=== PATIENT | female | born 1935 | race Caucasian/White ===

== ENCOUNTER 2019-03-04 14:39 | Emergency (ER) | payer OTHER, BC ==
--- OUTSIDE RECORDS SUMMARY | 2019-03-04 14:42 | XMS REPORT | Continuity of Care Document ---
:1935 Author Organization [facility] Care Team Providers Name Role Phone [facility] Unavailable Unavailable Problems Problem Status Onset Classification Date Comments Source Date Reported Alzheimer Active Problem 12/16/2018 [facility] Dementia Active Problem 12/16/2018 [facility] Hypertension Active Problem 12/16/2018 [facility] Insomnia Active Problem 12/16/2018 [facility] Memory loss Active Problem 12/16/2018 [facility] Alzheimer's Active Problem 02/17/2019 [facility] (disorder) Dementia Active Problem 02/17/2019 [facility] (disorder) [facility] Hypertensive Active Problem 02/17/2019 [facility] disorder, Neuro systemic arterial (disorder) Insomnia Active Problem 02/17/2019 [facility] (disorder) Neuro Memory Active Problem 02/17/2019 [facility] impairment [facility] (finding) Medications Medication Details Route Status Patient Ordering Order Source Instructions Provider Date Memantine 10 mg=1 Active [facility] hydrochloride 10 tab, PO, 019 [facility] MG Oral Tablet BID, # 60 [Namenda] tab, 3 Refill(s), Pharmacy: [id number] donepezil 10 mg 10 mg=1 Active [facility] oral tablet tab, PO, 019 [facility] Bedtime, # 30 tab, 3 Refill(s), Pharmacy: [facility][id number] QUEtiapine 25 mg 25 mg, PO, Active [facility] oral tablet PRN, PRN 019 Neuro Agitation, # 30 tab, 2 Refill(s), Pharmacy: [facility] #[id number] donepezil 10 mg 10 mg=1 Active [facility] oral tablet tab, PO, 019 Neuro Bedtime, # 30 tab, 3 Refill(s), Pharmacy: [facility] #[id number] Memantine 10 mg=1 Active [facility] hydrochloride 10 tab, PO, 019 Neuro MG Oral Tablet BID, # 60 [Namenda] tab, 3 Refill(s), Pharmacy: [facility] #[id number] metoprolol 50 mg=1 Active [facility] succinate 50 mg cap, PO, 019 Neuro oral capsule, Daily, 0 extended release Refill(s) Thyroxine 25 Active [facility] microgram, 019 Neuro PO, Daily, 0 Refill(s) rosuvastatin 10 mg, PO, Active [facility] Daily, 0 019 Neuro Refill(s) quetiapine 25 mg, PO, Active [facility] Bedtime, 0 019 Neuro Refill(s) loratadine 10 mg 10 mg=1 Active [facility] oral capsule cap, PO, 019 Neuro Daily, 0 Refill(s) donepezil 70 mg, PO, Inactive [facility] Daily, 0 019 Neuro Refill(s) Amlodipine 10 mg, PO, Active [facility] Daily, 0 019 Neuro Refill(s) Aspirin 81 mg, PO, Active [facility] Daily, 0 019 Neuro Refill(s) Allergies, Adverse Reactions, Alerts No Known Medication Allergies Immunizations No Data Provided for This Section Results No Data Provided for This Section Pathology Reports No Data Provided for This Section Diagnostic Reports No Data Provided for This Section Consultation Notes No Data Provided for This Section Discharge Summaries No Data Provided for This Section History and Physicals No Data Provided for This Section Vital Signs Vital Sign Value Date Comments Source Systolic (mm Hg) 131 02/14/2019 [facility] Diastolic (mm Hg) 83 02/14/2019 [facility] Heart Rate 50 02/14/2019 [facility] Respitory Rate 16 02/14/2019 [facility] Height 162.56 cm 02/14/2019 [facility] Weight 58.182 02/14/2019 [facility] BMI Calculated 22.02 02/14/2019 [facility] Height 152.4 cm 12/13/2018 [facility] Weight 58.182 12[place]13/2018 [facility] BMI Calculated 25.05 12/13/2018 [facility] Heart Rate 68 12/13/2018 [facility] Respitory Rate 16 12/13/2018 [facility] Systolic (mm Hg) 135 12/13/2018 [facility] Diastolic (mm Hg) 80 12/13/2018 [facility] BMI Calculated 22.53 11/10/2018 [facility] Weight 59.545 11/10/2018 [facility] Respitory Rate 16 11/10/2018 [facility] Height 162.56 cm 11/10/2018 [facility] Systolic (mm Hg) 120 11/10/2018 [facility] Diastolic (mm Hg) 77 11/10/2018 [facility] Encounters Location Location Encounter Encounter Reason Attending ADM DC Status Source Details Type Number For Provider Date Date Visit Outpatient [id number] Brock 11/08 Active [facility] Ambulatory [id number] Brock 11/08 11/08 [facility] [place] [facility] Outpatient [id number] Brock 11/08 11/09 [facility] [place] Outpatient [id number] Brock 11/10 [facility] [place] [facility] Outpatient [id number] Brock 11/10 11/11 [facility] [place] Outpatient [id number] Brock 12/13 [facility] [place] [facility] Outpatient [id number] Brock 12/13 12/14 [facility] [place] Outpatient [id number] Brock 02/14 [facility] [place] [facility] Outpatient [id number] Brock 02/14 02/15 [facility] [place] Outpatient [id number] Brock 05/16 [facility] [place] Procedures Procedure Code Date Perfomer Comments Source Bypass [id number] [facility] Assessment and Plan No Data Provided for This Section Plan of Care No Data Provided for This Section Social History Social History Date Source Social History TypeResponse 11/10/2018 [facility] Employment/School Status: Retired.1 Smoking Status Unknown if ever smoked; Exposure to Tobacco Smoke Unable to obtain; Cigarette Smoking Last 365 Days Unable to obtain; Reg Smoking Cessation Counseling No entered on: 02/14/19 1May release medical information to Daughter- Zenia Bailey and Tool Engine Lathe Set Up Operatoraisha valdez Family History No Data Provided for This Section Advance Directives No Data Provided for This Section Functional Status No Data Provided for This Section
--- OUTSIDE RECORDS SUMMARY | 2019-03-04 14:43 | XMS REPORT | Summary of Care ---
:1935 Author Organization [facility] Address [address] [place] [address]- Encounter HQ Tiannar_dorys(FIN) [id number] Date(s): 02/14/19 - 02/14/19 [facility] [address], [place] [address]- [phone] Discharge Disposition: Home or Self Care Attending Physician: Brock Yee MD Referring Physician: Brock Yee MD Vital Signs Most recent to oldest [Reference Range]: 1 Height 162.56 cm (02/14/19 9:14 AM) Blood Pressure [90-140/60-90 mmHg] 131/83 mmHg (02/14/19 9:14 AM) Respiratory Rate [14-20 BRMIN] 16 BRMIN (02/14/19 9:14 AM) Peripheral Pulse Rate [60-100 bpm] 50 bpm *LOW* (02/14/19 9:14 AM) Weight 58.182 kg (02/14/19 9:14 AM) Body Mass Index 22.02 m2 (02/14/19 9:14 AM) Problem List Condition Effective Dates Status Health Status Informant Alzheimer disease(Confirmed) Active Dementia(Confirmed) Active Hypertension(Confirmed) Active Insomnia(Confirmed) Active Memory loss(Confirmed) Active Allergies, Adverse Reactions, Alerts No Known Allergies Medications donepezil 10 mg oral tablet 10 mg=1 tab, PO, Bedtime, # 30 tab, 3 Refill(s), Pharmacy: [id number] Start Date: 02/14/19 Stop Date: 06/14/19 Status: OrderedNamenda 10 mg oral tablet 10 mg=1 tab, PO, BID, # 60 tab, 3 Refill(s), Pharmacy: [id number] Start Date: 02/14/19 Stop Date: 06/14/19 Status: Ordered Results No data available for this section Immunizations No data available for this section Procedures Procedure Date Related Diagnosis Body Site Status Bypass Completed Social History Social History Type Response Employment/School Status: Retired.1 Smoking Status Unknown if ever smoked; Exposure to Tobacco Smoke Unable to obtain; Cigarette Smoking Last 365 Days Unable to obtain; Reg Smoking Cessation Counseling No entered on: 02/14/19 1May release medical information to Daughter- Zenia Bailey & Inward Toll Operator- Gino valdez Assessment and Plan No data available for this section
--- OUTSIDE RECORDS SUMMARY | 2019-03-04 14:43 | XMS REPORT ---
:1935 [facility] Address [address] [place] [address] Care Team Providers Name Role Phone Unavailable Unavailable Unavailable Problems This patient has no known problems. Allergies, Adverse Reactions, Alerts This patient has no known allergies or adverse reactions. Medications This patient has no known medications. Results Test Description Test Time Test Comments Text Results Atomic Results Result Comments US Extremity 2018-09-03 Patient: FRANCOIS GRIJALVA Nonvascular 11:48:53 Limited Right Date/Time09/03/2018 11:00 CDTReason for ExamExtremity swellingReportEXAMINATION: Right lower extremity nonvascular soft tissue ultrasoundTECHNIQUE: Multiplanar grayscale and color sonography of the right proximal lower extremity lateral soft tissues was performed.INDICATION: Fall with posttraumatic right lower extremity proximal lateral soft tissue swelling/painCOMPARISON: Right hip x-rays performed the same date 09/03/2018.FINDINGS:A 5.1 x 1.3 x 3.8 cm (SAT) prominently cystic fluid collection with multiple internal heterogeneously echoic components, without internal vascularity nor surrounding hypervascularity. Mild overlying soft tissue swelling/thickening.IMPRESSION:Findings most likely represent a 5.1 cm right lower extremity proximal lateral soft tissue organized hematoma. Final Dictated by: MD Carlos, SamerDictated DT/TM: 09/03/2018 11:45 amSigned by: MD Carlos, SamerSigned (Electronic Signature): 09/03/2018 11:48 am US Lower Ext 2018-09-03 Patient: FRANCOIS GRIJALVA Venous Duplex 11:43:40 Right Date/Time09/03/2018 11:34 CDTReason for ExamExtremity painReportEXAM: Right Lower Extremity Duplex Venous Sonogram.TECHNIQUE: Greyscale imaging with and without Doppler interrogation including Doppler wave-form analysis and Doppler color-flow imaging.HISTORY: Fall with posttraumatic right lower extremity swelling and painCOMPARISON: NoneFINDINGS:Right lower extremity: The common femoral, superficial femoral, and popliteal veins demonstrated normal compressibility, and normal augmented and phasic Doppler data were obtained. Normal augmented Doppler data was obtained from the peroneal, posterior tibial, and anterior tibial veins.IMPRESSION: No evidence of DVT involving the right lower extremity. Final Dictated by: MD Carlos, SamerDictated DT/TM: 09/03/2018 11:42 amSigned by: MD Gonzalez SamerSigned (Electronic Signature): 09/03/2018 11:43 am XR Pelvis 1 or 2 2018-09-03 Patient: FRANCOIS GRIJALVA Views 09:41:46 Date/Time09/03/2018 09:26 CDTReason for ExamInjuryReportEXAMINATION:1. PELVIS: ONE AP VIEW2. RIGHT HIP 2 VIEWSCLINICAL INFORMATION: Fall with posttraumatic right hip pain.COMPARISON:FINDINGS: No acute fractures or dislocations. No osseous erosions or periosteal reaction. Mild degenerative osteophytosis of the bilateral hips. Sacroiliac joints are grossly unremarkable. Moderate calcific atherosclerosis of the bilateral pelvic/proximal lower extremity vasculature. No radiopaque foreign bodies. Mild soft tissue swelling/hematoma of the lateral aspect of the right proximal lower extremity soft tissues.IMPRESSION:1. No acute osseous abnormalities of the pelvis/right hip.2. Mild degenerative changes the bilateral acetabular joints.3. Mild proximal right lower extremity lateral soft tissue hematoma. Final Dictated by: MD Carlos, SamerDictated DT/TM: 09/03/2018 9:38 amSigned by: MD Gonzalez SamerSigned (Electronic Signature): 09/03/2018 9:41 am XR Hip Complete 2+ 2018-09-03 Patient: FRANCOIS GRIJALVA Views Right 09:41:46 Date/Time09/03/2018 09:26 CDTReason for ExamFallReportEXAMINATION:1. PELVIS: ONE AP VIEW2. RIGHT HIP 2 VIEWSCLINICAL INFORMATION: Fall with posttraumatic right hip pain.COMPARISON:FINDINGS: No acute fractures or dislocations. No osseous erosions or periosteal reaction. Mild degenerative osteophytosis of the bilateral hips. Sacroiliac joints are grossly unremarkable. Moderate calcific atherosclerosis of the bilateral pelvic/proximal lower extremity vasculature. No radiopaque foreign bodies. Mild soft tissue swelling/hematoma of the lateral aspect of the right proximal lower extremity soft tissues.IMPRESSION:1. No acute osseous abnormalities of the pelvis/right hip.2. Mild degenerative changes the bilateral acetabular joints.3. Mild proximal right lower extremity lateral soft tissue hematoma. Final Dictated by: MD Carlos, SamerDictated DT/TM: 09/03/2018 9:38 amSigned by: MD Carlos, Sue (Electronic Signature): 09/03/2018 9:41 am XR Chest 1 View 2018-09-03 Patient: FRANCOIS GRIJALVA Frontal 09:38:43 Date/Time09/03/2018 09:26 CDTReason for ExamShortness of breathReportEXAM: Chest, 1 View at 0909.TECHNIQUE: AP semiupright view.COMPARISON: None available at time of dictationHISTORY: Shortness of breathFINDINGS:Cardiac silhouette is within normal limits. Moderately tortuous thoracic aorta. No infiltrate or pleural effusion is seen. Median sternotomy wires are in place. Osseous structures are otherwise grossly intact.IMPRESSION:No acute intrathoracic abnormalities. Final Dictated by: MD Carlos, SamerDictated DT/TM: 09/03/2018 9:35 amSigned by: MD Carlos, Sue (Electronic Signature): 09/03/2018 9:[address] THORAX W/CONT 2017-04-01 [id number] 15:28:00 [place], [place] [address]LNILTVWPNN IMAGING REPORTPatient Name: FRANCOIS GRIJALVA ADate of Service: [id number]: [id number] Sex: F Order #: [id number] Room: OPEDOB: 1935 X-Ray Number: [id number] Record Number: [id number] Hospital Number: [id number] Physician: AARON, PCPOrdering Physician: ANNIE TORRE chest with contrast 3:00 PMHistory: Thoracic aneurysm, CABG.This CT exam was performed using one or more of the following dosereduction techniques: Automated exposure control, adjustment of the MAand/or KV according to patient size or use of iterative reconstructiontechnique.Findings:There has been CABG.There is a thoracic aortic aneurysm. The ascending thoracic aorta measuresapproximately 5.1 x 3.9 cm. The aortic arch demonstrates atheroscleroticchange and measures approximately 4.1 x 4.0 cm. The proximal descendingthoracic aorta measures 3.1 x 2.8 cm and is tortuous. The distal descendingthoracic aorta measures 4.3 x 5.7 cm near the thoracoabdominal junction.There is a moderate-sized hiatal hernia present.There has been cholecystectomy.Large left renal cyst measures roughly 7 cm.The lungs demonstrate no focal consolidation.There is no pleural effusion or pneumothorax present.There are degenerative changes of the spine.Impression:Thoracic aortic aneurysm as discussed above.Hiatal hernia.Electronically Signed By: Chan Gutierrez M.D., 04/01/2017 3:25 PMLcamillallmartha authenticated by MATT SANTIAGO 2017-04-01 15:25:50
--- NOTE | 2019-03-04 16:05 | RAD REPORT ---
EXAM DESCRIPTION: CT - Stone Protocol - 03/04/2019 3:45 pm CLINICAL HISTORY: Abdominal pain, back pain, decreased urine output COMPARISON: None. TECHNIQUE: Axial 5 mm thick images were obtained without oral or IV contrast. The [id number] span s the entirety of the system partially obscuring uppermost abdomen and lung bases. All CT scans are performed using dose optimization technique as appropriate and may include automated exposure control or mA/KV adjustment according to patient size. FINDINGS: No hydronephrosis is present and no obstructing ureteral calculi. No suspicious renal mass es. Isodense masses and pyelonephritis are not excluded on a stone protocol CT scan. Patient has mult iple phleboliths along the pelvic floor. There is a large 8.5 centimeter cyst in the lateral and infe rior aspect of the left kidney. No significant adrenal finding. Bladder is only partially filled. No bladder calculus seen. Bladder wall thickening is present. Atrop hic ovarian tissue is identified. There is a soft tissue density posterior the bladder that may be at rophic uterus. Hysterectomy status of the patient is uncertain. Margins of this structure are not wel l defined. There is an excessive soft tissue along the pelvic floor extending to the vaginal vault an d labia. Patient has significant pelvic floor laxity. There is prominent soft tissue near the anus. Imaged portions of the liver, spleen and pancreas show no suspicious findings on non-contrast imaging . Cholecystectomy clips are present. No biliary tree dilatation. Moderate-size hiatal hernia is present. Approximately 30% of the stomach is intrathoracic. No dilatio n of the small bowel. There is minimal sigmoid diverticulosis. From cecum to distal rectum there is n o suspicious finding. Prominent soft tissues are present at the anus. No abnormal lymphadenopathy. No ascites or omental thickening. Midline surgical changes are evident. A small supraumbilical hernia is present containing only fat. No free air or pneumatosis. No acute bone findings seen. There is concavity of the superior endplate L1 with overall body height preserved. Patient has a 4.8 centimeter diameter hernia in the distal most thoracic aorta. Aorta is quite tortuo us. A second area of aneurysmal dilatation reaching 3.8 cm noted at the level of the renal vasculatur e. Aorta is 3.4 cm between the renal vasculature in the aortic bifurcation. Dense calcifications are present. No centrally displaced calcifications. Very dense calcifications of the mesenteric arterial tree seen. Dense common iliac artery calcifications are present with probable stenoses. Vascular asse ssment is limited in the absence of contrast. IMPRESSION: No bowel obstruction, free air or emergent finding. Contracted bladder showing wall thickening. Cystitis is possible. There is no hydronephrosis or obstr ucting calculus. Isodense masses and pyelonephritis are not excluded on stone protocol study. Hysterectomy status is not known. There is an excess of soft tissue along the pelvic floor that may i nvolve the vaginal vault and labia. Prominent soft tissues at the anus. This is all in the presence o f significant pelvic floor laxity. Pelvic floor findings are concerning for malignancy. Further history may be helpful. Dedicated MEAT AND POULTRY INSPECTOR ex amination will likely be needed. Distal thoracic aortic aneurysm reaching 4.8 cm. 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 Additional less significant findings detailed in the body of the report.
[2019-03-04 16:28] LABS: Absolute Lymphocytes (CBC) 1.8 K/uL (0.7-4.9); Basophils % 0.4 % (0-1.3); Hematocrit 36.8 % (36.0-45.0); Lymphocytes % 17.4 % (15.3-44.8); MPV 9.6 fL (7.6-11.3); RBC Red Blood Cell Count 4.14 M/uL (3.86-4.86)
[2019-03-04 16:48] LABS: Albumin 3.8 g/dL (3.4-5.0); Bilirubin Direct 0.2 mg/dL (0-0.2); Bilirubin Total 0.8 mg/dL (0.2-1.0)
[2019-03-04 17:23] LABS: Urine Bacteria >50 /HPF (<20); Urine Culture Reflex Order REFLEXED; Urine Mucus SLIGHT /HPF (NONE SEEN)
[2019-03-04 18:00] LABS: Urine Blood 2+ (NEG); Urine Glucose NEGATIVE (NEG); Urine Protein 2+ (NEG)
[2019-03-04] MEDS ORDERED: CIPROFLOXACIN HCL 500 MG TAB ONE (18:12)
[2019-03-04] MEDS ORDERED: CODEINE 30MG/APAP 300MG TAB ONE (18:13)
[2019-03-04] MEDS ORDERED: NA CHLORIDE 0.9% 1,000 ML ONE (18:13)
--- NOTE | 2019-03-04 19:38 | EDPHYS ---
Physician Documentation [facility] Name: Nilda Gracia Age: 84 yrs Sex: Female : 1935 Arrival Date: 03/04/2019 Time: 14:44 Bed 16 Private MD: ED Physician Verona Diaz HPI: 03/04 16:32 This 84 yrs old Female presents to ER via Ambulatory with complaints of Back pm1 Pain. 16:32 The patient presents with pain that is acute. The symptoms are located in the right low pm1 back. Onset: The symptoms/episode began/occurred yesterday. The pain does not radiate. Associated signs and symptoms: Pertinent positives: dysuria, Pertinent negatives: abdominal pain, chest pain, fever, headache, numbness, tingling. Severity of symptoms: in the emergency department the symptoms are unchanged. The patient has not recently seen a physician. Historical: - Allergies: 14:48 PENICILLINS; la1 - PMHx: 14:48 Dementia; la1 - Immunization history:: Adult Immunizations up to date. - Social history:: Smoking status: Patient/guardian denies using tobacco. - Ebola Screening: : No symptoms or risks identified at this time. ROS: 16:32 Constitutional: Negative for fever, chills, and weight loss, Eyes: Negative for injury, pm1 pain, redness, and discharge, ENT: Negative for injury, pain, and discharge, Neck: Negative for injury, pain, and swelling, Cardiovascular: Negative for chest pain, palpitations, and edema, Respiratory: Negative for shortness of breath, cough, wheezing, and pleuritic chest pain, Abdomen/GI: Negative for abdominal pain, nausea, vomiting, diarrhea, and constipation. 16:32 MS/Extremity: Negative for injury and deformity, Skin: Negative for injury, rash, and discoloration, Neuro: Negative for headache, weakness, numbness, tingling, and seizure. 16:32 Back: Positive for of the right low back, pain. 16:32 : Positive for burning with urination. Exam: 16:32 Constitutional: This is a well developed, well nourished patient who is awake, alert, pm1 and in no acute distress. Head/Face: Normocephalic, atraumatic. Eyes: Pupils equal round and reactive to light, extra-ocular motions intact. Lids and lashes normal. Conjunctiva and sclera are non-icteric and not injected. Cornea within normal limits. Periorbital areas with no swelling, redness, or edema. ENT: Nares patent. No nasal discharge, no septal abnormalities noted. Tympanic membranes are normal and external auditory canals are clear. Oropharynx with no redness, swelling, or masses, exudates, or evidence of obstruction, uvula midline. Mucous membranes moist. Neck: Trachea midline, no thyromegaly or masses palpated, and no cervical lymphadenopathy. Supple, full range of motion without nuchal rigidity, or vertebral point tenderness. No Meningismus. Chest/axilla: Normal chest wall appearance and motion. Nontender with no deformity. No lesions are appreciated. Cardiovascular: Regular rate and rhythm with a normal S1 and S2. No gallops, murmurs, or rubs. Normal PMI, no JVD. No pulse deficits. Respiratory: Lungs have equal breath sounds bilaterally, clear to auscultation and percussion. No rales, rhonchi or wheezes noted. No increased work of breathing, no retractions or nasal flaring. Abdomen/GI: Soft, non-tender, with normal bowel sounds. No distension or tympany. No guarding or rebound. No evidence of tenderness throughout. 16:32 Skin: Warm, dry with normal turgor. Normal color with no rashes, no lesions, and no evidence of cellulitis. MS/ Extremity: Pulses equal, no cyanosis. Neurovascular intact. Full, normal range of motion. 16:32 Back: CVA tenderness, that is mild, is noted on the right, vertebral tenderness, is not appreciated. 16:32 Neuro: Orientation: is normal, Motor: is normal, moves all fours. Vital Signs: 14:48 BP 137 / 77; Pulse 62; Resp 16; Temp 98.1; Pulse Ox 98% on R/A; la1 15:42 BP 149 / 78; Pulse 57; Resp 16; Pulse Ox 97% on R/A; rb1 16:42 BP 144 / 81; Pulse 60; Resp 15; Pulse Ox 98% on R/A; rb1 17:42 BP 144 / 70; Pulse 56; Resp 17; Pulse Ox 96% on R/A; Pain 7/10; rb1 18:40 BP 150 / 77; Pulse 57; Resp 18; Pulse Ox 96% on R/A; rb1 19:15 BP 149 / 73; Pulse 61; Resp 16; Pulse Ox 96% on R/A; jb4 20:15 BP 143 / 72; Pulse 61; Resp 16; Pulse Ox 96% on R/A; jb4 MDM: 15:08 Patient medically screened. pm1 19:04 Data reviewed: vital signs. Data interpreted: Pulse oximetry: on room air is 96 %. pm1 Interpretation: normal. Counseling: I had a detailed discussion with the patient and/or guardian regarding: the historical points, exam findings, and any diagnostic results supporting the discharge/admit diagnosis, lab results, radiology results, the need for outpatient follow up, to return to the emergency department if symptoms worsen or persist or if there are any questions or concerns that arise at home. 03/04 15:10 Order name: Basic Metabolic Panel; Complete Time: 17:02 pm1 03/04 15:10 Order name: CBC with Diff; Complete Time: 16:31 pm1 03/04 15:10 Order name: Creatinine for Radiology; Complete Time: 17:02 pm1 03/04 15:10 Order name: Hepatic Function; Complete Time: 17:02 pm1 03/04 15:10 Order name: Lipase; Complete Time: 17:02 pm1 03/04 16:31 Order name: Urine Microscopic Only; Complete Time: 17:45 pm1 03/04 15:10 Order name: Urine Dipstick-Ancillary (obtain specimen); Complete Time: 16:22 pm1 03/04 15:10 Order name: CT Stone Protocol; Complete Time: 16:28 pm1 03/04 15:10 Order name: IV Saline Lock; Complete Time: 17:16 pm1 03/04 17:21 Order name: Urine Dipstick--Ancillary (enter results); Complete Time: 18:52 ms 03/04 17:28 Order name: Urine Culture EDMS 03/04 15:10 Order name: Labs collected and sent; Complete Time: 17:16 pm1 Administered Medications: 18:05 Drug: NS 0.9% 1000 ml Route: IV; Rate: 1000 ml; Site: left antecubital; rb1 20:38 Follow up: Response: No adverse reaction; IV Status: Completed infusion jb4 18:16 Drug: Cipro 500 mg Route: PO; rb1 18:44 Follow up: Response: No adverse reaction; Pain is decreased rb1 18:16 Drug: Tylenol #3 (300 mg-30 mg) 1 tablet {Note: RASS score 0.} Route: PO; rb1 18:44 Follow up: Response: No adverse reaction; Pain is decreased rb1 Disposition: 03/04/19 19:05 Discharged to Home. Impression: Urinary tract infection, site not specified. - Condition is Stable. - Discharge Instructions: Urinary Tract Infection, Adult. - Prescriptions for Cipro 500 mg Oral Tablet - take 1 tablet by ORAL route every 12 hours for 7 days; 14 tablet. Tylenol- Codeine #3 300-30 mg Oral Tablet - take 1 tablet by ORAL route every 8 hours As needed; 12 tablet. - Medication Reconciliation Form, Thank You Letter, Antibiotic Education, Prescription Opioid Use form. - Follow up: Emergency Department; When: As needed; Reason: Worsening of condition. Follow up: Private Physician; When: 2 - 3 days; Reason: Recheck today's complaints, Continuance of care, Re-evaluation by your physician. - Problem is new. - Symptoms have improved. Signatures: Dispatcher [employer] EDMS Adalberto Simms RN RN la1 Aleida Garcia RN RN rb1 Thiago Cornejo NP [employer]TRONICS TECHNICIAN pm1 Alexx Putnam RN RN jb4 Verona Diaz MD MD ma2 Corrections: (The following items were deleted from the chart) 20:38 19:05 03/04/2019 19:05 Discharged to Home. Impression: Urinary tract infection, site jb4 not specified. Condition is Stable. Forms are Medication Reconciliation Form, Thank You Letter, Antibiotic Education, Prescription Opioid Use. Follow up: Emergency Department; When: As needed; Reason: Worsening of condition. Follow up: Private Physician; When: 2 - 3 days; Reason: Recheck today's complaints, Continuance of care, Re-evaluation by your physician. Problem is new. Symptoms have improved. pm1
--- NOTE | 2019-03-04 19:38 | ER ---
Nurse's Notes [facility] Name: Nilda Gracia Age: 84 yrs Sex: Female : 1935 Arrival Date: 03/04/2019 Time: 14:44 Bed 16 Private MD: Diagnosis: Urinary tract infection, site not specified Presentation: 03/04 14:49 Presenting complaint: Child states: She started having lower back pain yesterday. She la1 seems to be more lethargic than normal. Transition of care: patient was not received from another setting of care. Onset of symptoms was March 04, 2019. Risk Assessment: Do you want to hurt yourself or someone else? Patient reports no desire to harm self or others. Initial Sepsis Screen: Does the patient meet any 2 criteria? No. Patient's initial sepsis screen is negative. Does the patient have a suspected source of infection? No. Patient's initial sepsis screen is negative. Care prior to arrival: None. 14:49 Method Of Arrival: Ambulatory la1 14:49 Acuity: GIANFRANCO 3 la1 Historical: - Allergies: 14:48 PENICILLINS; la1 - PMHx: 14:48 Dementia; la1 - Immunization history:: Adult Immunizations up to date. - Social history:: Smoking status: Patient/guardian denies using tobacco. - Ebola Screening: : No symptoms or risks identified at this time. Screenin:55 Abuse screen: Denies threats or abuse. Nutritional screening: No deficits noted. rb1 Tuberculosis screening: No symptoms or risk factors identified. Fall Risk No fall in past 12 months (0 pts). Secondary diagnosis (15 points) dementia, No IV (0 pts). Ambulatory Aid- Crutches/Cane/Walker (15 pts). Gait- Impaired (20 pts.). Mental Status- Overestimates/Forgets Limitations (15 pts.). Total Jung Fall Scale indicates High Risk Score (45 or more points). Fall prevention measures have been instituted. Side Rails Up X 2 Placed Close to Nursing Station 1:1 Attendant Assigned Frequent Obs/Assessments Occuring Family Present and informed to notify staff if the need to leave the bedside As available patient and family educated on Fall Prevention Program and Strategies. Assessment: 14:55 General: Appears uncomfortable, Behavior is calm, cooperative. Pain: Complains of pain rb1 in right lower back Pain does not radiate. pain is constant Pain currently is 7 out of 10 on a pain scale. Neuro: Level of Consciousness is awake, alert, obeys commands, Oriented to person, place, time, situation. Cardiovascular: Capillary refill < 3 seconds is brisk in bilateral. Respiratory: Airway is patent Respiratory effort is even, unlabored, Respiratory pattern is regular, symmetrical. GI: No signs and/or symptoms were reported involving the gastrointestinal system. : No signs and/or symptoms were reported regarding the genitourinary system. Derm: Skin is pink, warm \T\ dry. Musculoskeletal: Range of motion: intact in all extremities. 15:50 Reassessment: Patient appears in no apparent distress at this time. No changes from rb1 previously documented assessment. 16:50 Reassessment: Patient appears in no apparent distress at this time. Patient and/or rb1 family updated on plan of care and expected duration. Pain level reassessed. Patient is alert, oriented x 3, equal unlabored respirations, skin warm/dry/pink. 17:44 Reassessment: Patient appears in no apparent distress at this time. No changes from rb1 previously documented assessment. Family at bedside. 19:16 Reassessment: Patient appears in no apparent distress at this time. Patient and/or jb4 family updated on plan of care and expected duration. Pain level reassessed. PT is oriented to place, and self, and situation. Respirations are even and unlabored and symmetrical. No s/s of distress or pain noted. D/c pending completion of IV fluids. 20:35 Reassessment: Patient appears in no apparent distress at this time. No changes from jb4 previously documented assessment. Patient and/or family updated on plan of care and expected duration. Pain level reassessed. PT's family verbalized understanding of d/c and follow up instructions. Pt assisted to vehicle via wheelchair. Vital Signs: 14:48 BP 137 / 77; Pulse 62; Resp 16; Temp 98.1; Pulse Ox 98% on R/A; la1 15:42 BP 149 / 78; Pulse 57; Resp 16; Pulse Ox 97% on R/A; rb1 16:42 BP 144 / 81; Pulse 60; Resp 15; Pulse Ox 98% on R/A; rb1 17:42 BP 144 / 70; Pulse 56; Resp 17; Pulse Ox 96% on R/A; Pain 7/10; rb1 18:40 BP 150 / 77; Pulse 57; Resp 18; Pulse Ox 96% on R/A; rb1 19:15 BP 149 / 73; Pulse 61; Resp 16; Pulse Ox 96% on R/A; jb4 20:15 BP 143 / 72; Pulse 61; Resp 16; Pulse Ox 96% on R/A; jb4 ED Course: 14:44 Patient arrived in ED. mr 14:48 Arm band placed on left wrist. la1 14:49 Triage completed. la1 14:55 Patient has correct armband on for positive identification. Placed in gown. Bed in low rb1 position. Call light in reach. Side rails up X 1. Pulse ox on. NIBP on. Warm blanket given. 14:57 Thiago Cornejo NP is PHCP. pm1 14:57 Verona Diaz MD is Attending Physician. pm1 14:58 Aleida Garcia, RN is Primary Nurse. rb1 15:44 CT completed. Patient tolerated procedure well. Patient moved back from CT. mw3 15:45 CT Stone Protocol In Process Unspecified. EDMS 16:15 Inserted saline lock: 22 gauge in left antecubital area, using aseptic technique. rb1 ,using aseptic technique. IV inserted by RAHEEM Glover Blood collected. 19:23 Primary Nurse role handed off by Aleida Garcia, RAHEEM jb4 19:23 Alexx Putnam, RN is Primary Nurse. jb4 20:15 No provider procedures requiring assistance completed. IV discontinued, intact, jb4 bleeding controlled, No redness/swelling at site. Pressure dressing applied. Administered Medications: 18:05 Drug: NS 0.9% 1000 ml Route: IV; Rate: 1000 ml; Site: left antecubital; rb1 20:38 Follow up: Response: No adverse reaction; IV Status: Completed infusion jb4 18:16 Drug: Cipro 500 mg Route: PO; rb1 18:44 Follow up: Response: No adverse reaction; Pain is decreased rb1 18:16 Drug: Tylenol #3 (300 mg-30 mg) 1 tablet {Note: RASS score 0.} Route: PO; rb1 18:44 Follow up: Response: No adverse reaction; Pain is decreased rb1 Outcome: 19:05 Discharge ordered by . pm1 20:15 Discharged to home via wheelchair, with family. jb4 20:15 Condition: stable 20:15 Discharge instructions given to family, Instructed on discharge instructions, follow up and referral plans. medication usage, Demonstrated understanding of instructions, follow-up care, medications, Prescriptions given X 2. 20:38 Patient left the ED. jb4 Signatures: Dispatcher [employer] Alison WallaceAdalberto, RN RN la1 Aleida Garcia RN RN rb1 Thiago Cornejo, PLUMBER MAINTENANCE PLUMBER MAINTENANCE pm1 Alexx Putnam RN RN jb4 Sharonda Caba mw3 Corrections: (The following items were deleted from the chart) 16:51 14:55 Fall Risk None identified. rb1 rb1 19:24 19:16 Reassessment: Patient appears in no apparent distress at this time. Patient jb4 and/or family updated on plan of care and expected duration. Pain level reassessed. PT is oriented to place, and self, and situation. Respirations are even and unlabored and symmetrical. No s/s of distress or pain noted. jb4
[2019-03-04 21:21] VITALS: TEMP 98.1
[2019-03-04 21:25] VITALS: O2SAT 96
[2019-03-04 21:28] VITALS: BP 143/72
== END 2019-03-04 20:38 | disposition home or self-care (01) ==
LOC: ER 14:39
DX: N39.0 Urinary tract infection, site not specified (principal); F03.90 Unspecified dementia, unspecified severity, without behavioral disturbance, psychotic disturbance, mood disturbance, and anxiety; Z88.0 Allergy status to penicillin
CPT/HCPCS: 87088; 85025; 87086; 80048; 36415; 80076; 83690; 76377; 74176; J7030; 81003; 81015; 87077; 87186; 96360; 96361; 99284

== ENCOUNTER 2020-01-28 14:31 | Inpatient (IN) | payer OTHER, BC ==
--- OUTSIDE RECORDS SUMMARY | 2020-01-28 14:51 | XMS REPORT | Continuity of Care Document ---
:1935 Author Organization [facility] t Address [address] [place] [address] Care Team Providers Name Role Phone Lex Yee Attending Clinician Problems Condition Condition Condition Status Onset Resolution Last Treating Co mments Source Name Details Category Date Date Treatment Clinician Date Alzheimer' Problem Active 2019-11-17 M emoria s disease 21:17:16 l (disorder) Anderson n Alzheimer' s disease (disorder) Active Problem 11/17/2019 [facility] Dementia Problem Active 2019-11-17 Mem oria (disorder) 21:17:16 l Dementia Anderson n (disorder) Active Problem 11/17/2019 [facility] Hypertensi Problem Active 2019-11-17 M emoria ve 21:17:16 l disorder, [place] systemic Hypertensi arterial ve (disorder) disorder, systemic arterial (disorder) Active Problem 11/17/2019 [facility] Insomnia Problem Active 2019-11-17 Mem oria (disorder) 21:17:16 l Insomnia Anderson n (disorder) Active Problem 11/17/2019 [facility] Memory Problem Active 2019-11-17 Memor ia impairment 21:17:16 l (finding) Memory Sherly nn impairment (finding) Active Problem 11/17/2019 [facility] Allergies, Adverse Reactions, Alerts This patient has no known allergies or adverse reactions. Social History Social Habit Start Date Stop Date Quantity Comments Source Social History 2018-11-10 2018-11-10 Reese smalls 23:57:29 23:57:29 Medications Ordered Filled Start Stop Current Ordering Indication Dosage Frequency Signature Comments Components Source Medication Medication Date Date Medication? Clinician (SIG) Name Name 24 HR 2019- Yes 500 mg = 1 Celina a Divalproex 2-26 tab, PO, l Sodium 500 21:36: Bedtime, # Tad ermann MG Extended 01 90 tab, 3 Release Refill(s), Tablet Pharmacy: [Depakote] [facility] #[id number] 24 HR 2018-06 No 500 mg = 1 Memori a Divalproex 2-26 tab, PO, l Sodium 500 21:34: Bedtime, X H ermann MG Extended 16 90 day, # Release 90 tab, 3 Tablet Refill(s), [Depakote] Pharmacy: [facility] #[id number] Memantine 2018-06 Yes 10 mg = 1 Mem oria hydrochlori 2-04 tab, PO, l de 10 MG 16:04: BID, # 60 Herm rosi Oral Tablet 24 tab, 3 [Namenda] Refill(s), Pharmacy: [facility] cy #[id number] QUEtiapine 2018-06 Yes 25 mg, PO, M emoria 25 mg oral 2-04 PRN, PRN l tablet 16:04: Agitation, Sherly nn 10 # 30 tab, 2 Refill(s), Pharmacy: [facility] #[id number] donepezil 2018-06 Yes 10 mg = 1 Mem oria 10 mg oral 2-04 tab, PO, l tablet 16:01: Bedtime, # Sherly nn 28 30 tab, 3 Refill(s), Pharmacy: [facility] #[id number] 24 HR 2018-06 Yes 500 mg = 1 Memori a Divalproex 0-28 tab, PO, l Sodium 500 21:03: Bedtime, # H ermann MG Extended 00 30 tab, 3 Release Refill(s), Tablet Pharmacy: [Depakote] [facility] #[id number] Memantine 2019- Yes 10 mg = 1 Mem oria hydrochlori 9-04 tab, PO, l de 10 MG 14:30: BID, # 60 Herm rosi Oral Tablet 00 tab, 3 [Namenda] Refill(s), Pharmacy: [facility] #[id number] donepezil 2019- Yes 10 mg = 1 Mem oria 10 mg oral 9-04 tab, PO, l tablet 14:29: Bedtime, # Sherly nn 56 30 tab, 3 Refill(s), Pharmacy: [facility] #[id number] QUEtiapine 2018- Yes 25 mg, PO, M emoria 25 mg oral 7-03 PRN, PRN l tablet 14:35: Agitation, Sherly nn 00 # 30 tab, 2 Refill(s), Pharmacy: [facility] #[id number] donepezil 2019-0 Yes 10 mg = 1 Mem oria 10 mg oral 5-31 tab, PO, l tablet 15:03: Bedtime, # Sherly nn 00 30 tab, 3 Refill(s), Pharmacy: [facility] #[id number] Memantine 2019-0 Yes 10 mg = 1 Mem oria hydrochlori 5-31 tab, PO, l de 10 MG 15:03: BID, # 60 Herm rosi Oral Tablet 00 tab, 3 [Namenda] Refill(s), Pharmacy: [facility] #[id number] metoprolol 2019-0 Yes 50 mg = 1 Me moria succinate 5-31 cap, PO, l 50 mg oral 13:52: Daily, 0 Her fuentes capsule, 00 Refill(s) extended release Thyroxine 2019-0 Yes 25 Memoria 5-31 microgram, l 13:52: PO, Daily, [place] 0 Refill(s) rosuvastati 2019-0 Yes 10 mg, PO, Memoria n 5-31 Daily, 0 l 13:52: Refill(s) quetiapine 2019-0 Yes 25 mg, PO, M emoria 5-31 Bedtime, 0 l 13:52: Refill(s) loratadine 2019-0 Yes 10 mg = 1 Me moria 10 mg oral 5-31 cap, PO, l capsule 13:52: Daily, 0 Anderson n 00 Refill(s) donepezil 2019-0 No 70 mg, PO, Me moria 5-31 Daily, 0 l 13:52: Refill(s) Amlodipine 2019-0 Yes 10 mg, PO, M emoria 5-31 Daily, 0 l 13:52: Refill(s) Aspirin 2019-0 Yes 81 mg, PO, Praful juana 5-31 Daily, 0 l 13:52: Refill(s) Vital Signs Vital Name Observation Time Observation Value Comments Source Systolic (mm Hg) 2019-08-15 15:32:00 Pra[facility] rial [place] Diastolic (mm Hg) 2019-08-15 15:32:00 [facility] orial [place] Heart Rate 2019-08-15 15:32:00 [facility] [place] Respitory Rate 2019-08-15 15:32:00 Memori al [place] Height 2019-08-15 15:32:00 157.48 cm [facility] [place] Weight 2019-08-15 15:32:00 [facility] [place] BMI Calculated 2019-08-15 15:32:00 Mem[facility] [place] Systolic (mm Hg) 2019-05-16 15:10:00 Pra[facility] rial [place] Diastolic (mm Hg) 2019-05-16 15:10:00 Mem orial [place] Heart Rate 2019-05-16 15:10:00 [facility] [place] Respitory Rate 2019-05-16 15:10:00 [facility] [place] Height 2019-05-16 15:10:00 162.56 cm [facility] [place] Weight 2019-05-16 15:10:00 [facility] [place] BMI Calculated 2019-05-16 15:10:00 [facility] [place] Systolic (mm Hg) 2019-02-14 14:14:00 [facility] [place] Diastolic (mm Hg) 2019-02-14 14:14:00 Mem [facility] [place] Heart Rate 2019-02-14 14:14:00 [facility] [place] Respitory Rate 2019-02-14 14:14:00 [facility] [place] Height 2019-02-14 14:14:00 162.56 cm [facility] [place] Weight 2019-02-14 14:14:00 [facility] [place] BMI Calculated 2019-02-14 14:14:00 [facility] [place] Height 2018-12-13 14:22:00 152.4 cm [facility] [place] Weight 2018-12-13 14:22:00 [facility] [place] BMI Calculated 2018-12-13 14:22:00 [facility] [place] Heart Rate 2018-12-13 14:22:00 [facility] [place] Respitory Rate 2018-12-13 14:22:00 [facility] [place] Systolic (mm Hg) 2018-12-13 14:22:00 [facility] [place] Diastolic (mm Hg) 2018-12-13 14:22:00 Mem [facility] [place] BMI Calculated 2018-11-10 13:50:00 [facility] [place] Weight 2018-11-10 13:50:00 [facility] [place] Respitory Rate 2018-11-10 13:50:00 Mem[facility] al [place] Height 2018-11-10 13:50:00 162.56 cm [facility] [place] Systolic (mm Hg) 2018-11-10 13:50:00 Pra[facility] rial [place] Diastolic (mm Hg) 2018-11-10 13:50:00 Mem orial [place] Procedures Procedure Date / Time Performed Performing Clinician Dorina de jesus Bypass [facility] [place] Encounters Start End Encounter Admission Attending Care Care Encounter Source Date/Time Date/Time Type Type Clinicians Facility Department ID 2019-11-15 2019-11-15 Outpatient MARINA YeeSCHER MHMISCHER [id number] 09:45:00 09:45:00 [facility] 08 Lex 2019-08-15 2019-08-15 Outpatient MARINA YeeSCHER MHMISCHER [id number] 09:45:00 23:59:59 [facility] Lex 2019-05-16 2019-05-16 Outpatient MARINA YeeSCHILANA MARINELLIMISCHER [id number] 09:45:00 23:59:59 [facility] 06 Lex 2019-02-14 2019-02-14 Outpatient MARINA YeeSCHER MHMISCHER [id number] 09:15:00 23:59:59 [facility] 05 Lex 2018-12-13 2018-12-13 Outpatient ISIS YeeMISCHER MHMISCHER [id number] 09:00:00 23:59:59 Brock [facility] 2018-11-10 2018-11-10 Outpatient MARINA YeeSCHER ISISMISCHER [id number] 09:15:00 23:59:59 [facility] 03 [facility] 2018-11-08 2018-11-08 Outpatient MARINA YeeSCHER MHMISCHER [id number] 16:00:00 23:59:59 Brock [facility] 2018-11-08 2018-11-08 Outpatient ISIS YeeMARQUISSCHER MHMISCHER [id number] 14:00:00 14:00:00 [facility] 01 Lex Results Test Description Test Time Test Comments Results Result Dorina de jesus Comments US Extremity 2018-08-12 Patient: VALENTINE, Nonvascular 4 FRANCOIS A Limited Right 11:48:53 Date/Time09/03/2018 11:00 CDTReason for ExamExtremity swellingReportEXAMINATION: Right [...] nor surrounding hypervascularity. Mild overlying soft tissue swelling/thickening.IMPRES ANAT:Findings most likely represent a 5.1 cm right lower extremity proximal lateral soft tissue organized hematoma. Final Dictated by: MD Carlos, SamerDictated DT/TM: 09/03/2018 11:45 amSigned by: MD Carlos, Tomigned (Electronic Signature): 09/03/2018 11:48 am US Lower Ext 2018-08-12 Patient: VALENTINE Venous Duplex 4 FRANCOIS A Right 11:43:40 Date/Time09/03/2018 11:34 CDTReason for ExamExtremity painReportEXAM: Right [...] SamerDictated DT/TM: 09/03/2018 11:42 amSigned by: MD Carlos, SameShaliniigned (Electronic Signature): 09/03/2018 11:43 am XR Pelvis 1 or 2 2018-08-12 Patient: VALENTINE Views 4 FRANCOIS A 09:41:46 Date/Time09/03/2018 09:26 CDTReason for ExamInjuryReportEXAMINATIO N:1. PELVIS: ONE AP VIEW2. RIGHT HIP 2 [...] DT/TM: 09/03/2018 9:38 amSigned by: MD Carlos, Tomigned (Electronic Signature): 09/03/2018 9:41 am XR Hip Complete 2018-08-12 Patient: VALENTINE, 2+ Views Right 4 FRANCOIS A 09:41:46 Date/Time09/03/2018 09:26 CDTReason for ExamFallReportEXAMINATION: 1. PELVIS: ONE AP VIEW2. RIGHT HIP 2 [...] 09/03/2018 9:41 am XR Chest 1 View 2018-08-12 Patient: VALENTINE, Frontal 4 FRANCOIS A 09:38:43 Date/Time09/03/2018 09:26 CDTReason for ExamShortness of [...] DT/TM: 09/03/2018 9:35 amSigned by: MD Carlos, SamerSigned (Electronic Signature): 09/03/2018 9:[address] THORAX W/CONT 2017-03-[id number] 15:28:00 [place], [place] [address]OGAZDYBICN IMAGING REPORTPatient Name: FRANCOIS GRIJALVA ADate of Service: [id number]: [id number] Sex: F Order #: [id number] Room: OPEDOB: 1935 X-Ray Number: [id number] Record Number: [id number] Hospital Number: [id number] Physician: AARON PCPOrdering Physician: ANNIE TORRE chest with contrast 3:00 PMHistory: Thoracic aneurysm, CABG.This CT exam was performed using one or more of the following dosereduction techniques: Automated exposure control, adjustment of the MAand/or KV according to patient size or use of iterative reconstructiontechnique.Fi ndings:There has been CABG.There is a thoracic aortic [...] Signed By: Chan Gutierrez M.D., 04/01/2017 3:25 PMLegally authenticated by MATT SANTIAGO 2017-04-01 15:25:50
--- OUTSIDE RECORDS SUMMARY | 2020-01-28 14:51 | XMS REPORT | Continuity of Care Document ---
:1935 Author Organization [facility] Care Team Providers Name Role Phone [facility] Unavailable Un available Problems Problem Status Onset Classification Date Comments Sourc e Date Reported Alzheimer's Active Problem 11/17/2019 [facility] Neuro (disorder) Dementia Active Problem 11/17/2019 [facility]ischer (disorder) Neuro Hypertensive Active Problem 11/17/2019 Mische r disorder, Neuro systemic arterial (disorder) Insomnia Active Problem 11/17/2019 [facility] (disorder) Neuro Memory Active Problem 11/17/2019 [facility] impairment Neuro (finding) Medications Medication Details Route Status Patient Ordering Order Source Instructions Provider Date 24 HR Divalproex 500 mg = 1 Active Misc her Sodium 500 MG tab, PO, 019 Neuro Extended Release Bedtime, # Tablet 90 tab, 3 [Depakote] Refill(s), Pharmacy: [facility] #[id number] 24 HR Divalproex 500 mg = 1 Inactive Mis kristal Sodium 500 MG tab, PO, 019 Neuro Extended Release Bedtime, X Tablet 90 day, # [Depakote] 90 tab, 3 Refill(s), Pharmacy: [facility] #[id number] Memantine 10 mg = 1 Active Mischer hydrochloride 10 tab, PO, 019 Neuro MG Oral Tablet BID, # 60 [Namenda] tab, 3 Refill(s), Pharmacy: [facility] #[id number] QUEtiapine 25 mg 25 mg, PO, Active Misc her oral tablet PRN, PRN 019 Neuro Agitation, # 30 tab, 2 Refill(s), Pharmacy: [facility] #[id number] donepezil 10 mg 10 mg = 1 Active Mische r oral tablet tab, PO, 019 Neuro Bedtime, # 30 tab, 3 Refill(s), Pharmacy: [facility] #[id number] 24 HR Divalproex 500 mg = 1 Active Misc her Sodium 500 MG tab, PO, 019 Neuro Extended Release Bedtime, # Tablet 30 tab, 3 [Depakote] Refill(s), Pharmacy: [facility] #[id number] Memantine 10 mg = 1 Active Mischer hydrochloride 10 tab, PO, 019 Neuro MG Oral Tablet BID, # 60 [Namenda] tab, 3 Refill(s), Pharmacy: [facility] #[id number] donepezil 10 mg 10 mg = 1 Active Mische r oral tablet tab, PO, 019 Neuro Bedtime, # 30 tab, 3 Refill(s), Pharmacy: [facility] #[id number] QUEtiapine 25 mg 25 mg, PO, Active Misc her oral tablet PRN, PRN 019 Neuro Agitation, # 30 tab, 2 Refill(s), Pharmacy: [facility] #[id number] donepezil 10 mg 10 mg = 1 Active Mische r oral tablet tab, PO, 019 Neuro Bedtime, # 30 tab, 3 Refill(s), Pharmacy: [facility] #[id number] Memantine 10 mg = 1 Active Mischer hydrochloride 10 tab, PO, 019 Neuro MG Oral Tablet BID, # 60 [Namenda] tab, 3 Refill(s), Pharmacy: [facility] #[id number] metoprolol 50 mg = 1 Active Mischer succinate 50 mg cap, PO, 019 Neuro oral capsule, Daily, 0 extended release Refill(s) Thyroxine 25 Active Mischer microgram, 019 Neuro PO, Daily, 0 Refill(s) rosuvastatin 10 mg, PO, Active Mischer Daily, 0 019 Neuro Refill(s) quetiapine 25 mg, PO, Active Mischer Bedtime, 0 019 Neuro Refill(s) loratadine 10 mg 10 mg = 1 Active Misch er oral capsule cap, PO, 019 Neuro Daily, [...] Value Date Comments Source Systolic (mm Hg) 139 08/15/2019 [facility] Diastolic (mm Hg) 80 08/15/2019 [facility] Heart Rate 67 08/15/2019 [facility] Respitory Rate 16 08/15/2019 [facility] Height 157.48 cm 08/15/2019 [facility] Weight 58.182 08/15/2019 [facility] BMI Calculated 23.46 08/15/2019 [facility] Systolic (mm Hg) 153 05/16/2019 [facility] Faith ro Diastolic (mm Hg) 108 05/16/2019 [facility] Heart Rate 62 05/16/2019 [facility] Respitory Rate 16 05/16/2019 [facility] Height 162.56 cm 05/16/2019 [facility] Weight 54.545 05/16/2019 [facility] BMI Calculated 20.64 05/16/2019 [facility] Systolic (mm Hg) 131 02/14/2019 [facility] Faith ro Diastolic (mm Hg) 83 02/14/2019 [facility] Heart Rate 50 02/14/2019 [facility] Respitory Rate 16 02/14/2019 [facility] Height 162.56 cm 02/14/2019 [facility] Weight 58.182 02/14/2019 [facility] BMI Calculated 22.02 02/14/2019 [facility] Height 152.4 cm 12/13/2018 [facility] Weight 58.182 12/13/2018 [facility] BMI Calculated 25.05 12/13/2018 [facility] Heart Rate 68 12/13/2018 [facility] Respitory Rate 16 12/13/2018 [facility] Systolic (mm Hg) 135 12/13/2018 [facility] Faith ro Diastolic (mm Hg) 80 12/13/2018 [facility] BMI Calculated 22.53 11/10/2018 [facility] Weight 59.545 11/10/2018 [facility] Respitory Rate 16 11/10/2018 [facility] Height 162.56 cm 11/10/2018 [facility] Systolic (mm Hg) 120 11/10/2018 [facility] Diastolic (mm Hg) 77 11/10/2018 [facility] Encounters Location Location Encounter Encounter Reason Attending ADM DC Stat us Source Details Type Number For Provider Date Date Visit Outpatient [id number] [place] 11/08 Active [facility] [place] [facility] Amb[facility] [id number] [facility] 11/08 11/08 [facility] [place] [facility] Outpatient [id number] [facility] 11/08 11/09 [facility] [place] Outpatient [id number] Brock 11/10 Active [facility] [place] MNA Outpatient [id number] Brock 11/10 11/11 [facility] [place] Out[facility] [id number] Brock 12/13 Active [facility] [place] [facility]NA Outpatient [id number] Brock 12/13 12/14 [facility] [place] Out[facility] [id number] Brock 02/14 Active [facility] [place] [facility]NA Outpatient [id number] Brock 02/14 02/15 [facility] [place] Out[facility] [id number] Brock 05/16 Active [facility] [place] MNA Outpatient [id number] Brock 05/16 05/17 [facility] [place] Out[facility] [id number] Brock 08/14 Active [facility] [place] MNA Outpatient [id number] Brock 08/14 08/15 [facility] [place] Out[facility] [id number] Brock 11/14 Active [facility] [place] [facility] Ambulatory [id number] [facility] 11/14 11/14 [facility] [place] Procedures Procedure Code Date Perfomer Comments Source Bypass [id number] [facility] Assessment and Plan No Data Provided for This Section Plan of Care No Data Provided for This Section Social History Social History Date Source Social History TypeResponse 11/10/2018 [facility] Employment/School Status: Retired.1 Smoking Status Never smoker; Exposure to Tobacco Smoke Unable to obtain; Cigarette Smoking Last 365 Days Unable to obtain; Reg Smoking Cessation Counseling No entered on: 08/15/19 1May release medical information to Josefina Bailey and [employer]- Gino valdez Family History No Data Provided for This Section Advance Directives No Data Provided for This Section Functional Status No Data Provided for This Section
--- NOTE | 2020-01-28 16:08 | RAD REPORT ---
EXAM DESCRIPTION: RAD - Chest Single View - 01/28/2020 3:58 pm CLINICAL HISTORY: COUGH Chest pain. COMPARISON: No comparisons FINDINGS: Portable technique limits examination quality. Small opacity is present in the medial left lung base retrocardiac region likely representing a mild pneumonia/ infiltrate. Aortic arch is prominent with postsurgical changes of a CABG present. Bones ar e osteopenic.
[2020-01-28 16:10] LABS: Absolute Lymphocytes (CBC) 1.5 K/uL (0.7-4.9); Basophils % 0.6 % (0-1.3); Hematocrit 36.3 % (36.0-45.0); Lymphocytes % 13.9 % (15.3-44.8); MPV 10.7 fL (7.6-11.3); RBC Red Blood Cell Count 3.74 M/uL (3.86-4.86)
[2020-01-28 16:28] LABS: Potassium 4.1 mmol/L (3.5-5.1)
[2020-01-28 16:52] LABS: Urine Bacteria LOADED /HPF (<20); Urine Culture Reflex Order REFLEXED; Urine RBC TNTC /HPF (NONE SEEN)
[2020-01-28 16:53] LABS: Urine Blood 2+ (NEG); Urine Glucose NEGATIVE (NEG); Urine Protein 2+ (NEG); Urine pH 6.5 (5.0-7.0)
--- NOTE | 2020-01-28 17:34 | EDPHYS ---
Physician Documentation [facility] Name: Nilda Gracia Age: 84 yrs Sex: Female : 1935 Arrival Date: 01/28/2020 Time: 14:30 Bed 25 Private MD: ED Physician Eyal Kessler HPI: 01/27 17:34 This 84 yrs old Female presents to ER via EMS with complaints of Cough. jr8 17:34 The patient or guardian reports cough, that is intermittent, described as mild. Onset: jr8 The symptoms/episode began/occurred gradually, 3 day(s) ago. Severity of symptoms: At their worst the symptoms were mild, in the emergency department the symptoms are unchanged. Modifying factors: The symptoms are alleviated by nothing, the symptoms are aggravated by nothing. Associated signs and symptoms: Pertinent positives: altered mental status . The patient has experienced similar episodes in the past, a few times. The patient has not recently seen a physician. Mother stated that NH called today saying that patient had mild cough and altered mentation. Daughter stated that when she has had altered mentation in past it was from a UTI. EMS was called at that time to bring her to ED for further evaluation . Historical: - Home Meds: 14:36 memantine 10 mg oral tab 1 tab 2 times per day [Active]; donepezil 10 mg oral tab 1 tab bp once daily [Active]; divalproex 500 mg oral Tb24 1 tab once daily [Active]; lisinopril 5 mg Oral tab 1 tab once daily [Active]; quetiapine 25 mg oral tab 1 tab daily [Active]; diphenoxylate-atropine 2.5-0.025 mg Oral tab 2 tabs once daily [Active]; amlodipine 5 mg tab 1 tab once daily [Active]; - PMHx: 14:36 Dementia; Hypertension; Depression; bp - Immunization history:: Adult Immunizations up to date. - Social history:: Smoking status: Patient denies any tobacco usage or history of. ROS: 17:34 Eyes: Negative for injury, pain, redness, and discharge, ENT: Negative for injury, jr8 pain, and discharge, Neck: Negative for injury, pain, and swelling, Cardiovascular: Negative for chest pain, palpitations, and edema, Respiratory: Negative for shortness of breath, wheezing, and pleuritic chest pain. Positive for cough Abdomen/GI: Negative for abdominal pain, nausea, vomiting, diarrhea, and constipation, Back: Negative for injury and pain, MS/Extremity: Negative for injury and deformity, Skin: Negative for injury, rash, and discoloration. 17:34 Neuro: Positive for altered mental status. Exam: 17:34 Eyes: Pupils equal round and reactive to light, extra-ocular motions intact. Lids and jr8 lashes normal. Conjunctiva and sclera are non-icteric and not injected. Cornea within normal limits. Periorbital areas with no swelling, redness, or edema. ENT: Nares patent. No nasal discharge, no septal abnormalities noted. Tympanic membranes are normal and external auditory canals are clear. Oropharynx with no redness, swelling, or masses, exudates, or evidence of obstruction, uvula midline. Mucous membranes moist. Neck: Trachea midline, no thyromegaly or masses palpated, and no cervical lymphadenopathy. Supple, full range of motion without nuchal rigidity, or vertebral point tenderness. No Meningismus. Cardiovascular: Regular rate and rhythm with a normal S1 and S2. No gallops, murmurs, or rubs. Normal PMI, no JVD. No pulse deficits. Respiratory: Lungs have equal breath sounds bilaterally, clear to auscultation and percussion. No rales, rhonchi or wheezes noted. No increased work of breathing, no retractions or nasal flaring. Abdomen/GI: Soft, non-tender, with normal bowel sounds. No distension or tympany. No guarding or rebound. No evidence of tenderness throughout. Back: No spinal tenderness. No costovertebral tenderness. Full range of motion. Skin: Warm, dry with normal turgor. Normal color with no rashes, no lesions, and no evidence of cellulitis. MS/ Extremity: Pulses equal, no cyanosis. Neurovascular intact. Full, normal range of motion. 17:34 Neuro: Orientation: to person, Mentation: able to follow commands, confused, Memory: immediate memory is intact, remote memory is impaired, recent memory is impaired, Cranial nerves: CN I not tested, CN II- XII are normal as tested, visual phillips are intact. extraocular movements are intact, Motor: moves all fours, Sensation: is normal, no obvious gross deficits, seizure activity, is not displayed by the patient, Abnormal movements: there are no abnormal movements. Vital Signs: 14:30 BP 110 / 64; Pulse 72; Resp 16; Temp 99.4; Pulse Ox 96% ; bp 14:38 BP 98 / 63; Pulse 62; Resp 17; Temp 98.6(O); Pulse Ox 100% on R/A; Pain 0/10; ss 14:47 BP 106 / 66; ss 16:46 BP 119 / 73; Pulse 62; Resp 16; Pulse Ox 97% on R/A; ss 18:41 Temp 98.4(O); ss 19:00 BP 122 / 76; Pulse 69; Resp 18; Pulse Ox 95% on R/A; lp1 20:30 BP 122 / 57; Pulse 64; Resp 18; Pulse Ox 96% on R/A; lp1 MDM: 14:53 Patient medically screened. [facility] 17:26 Data reviewed: vital signs, nurses notes, lab test result(s), radiologic studies, plain jr8 films, and as a result, I will admit patient. Data interpreted: Pulse oximetry: on room air is 97 %. Interpretation: normal. Counseling: I had a detailed discussion with the patient and/or guardian regarding: the historical points, exam findings, and any diagnostic results supporting the discharge/admit diagnosis, lab results, radiology results, the need for further work-up and treatment in the hospital. 01/27 15:41 Order name: CBC with Diff; Complete Time: 17:12 [facility] 01/27 15:41 Order name: Basic Metabolic Panel; Complete Time: 17:12 [facility] 01/27 15:41 Order name: Urine Microscopic Only; Complete Time: 17:12 [facility] 01/27 16:15 Order name: Urine Dipstick--Ancillary (enter results); Complete Time: 17:12 eb 01/27 14:49 Order name: XRAY Chest (1 view); Complete Time: 17:12 rn 01/27 16:54 Order name: Urine Culture [facility] 01/27 17:14 Order name: Blood Culture Adult (2) [facility] 01/27 17:26 Order name: COVID-19 ss 01/27 19:38 Order name: SARS-COV-2 RT PCR; Complete Time: 19:55 [facility] 01/27 15:41 Order name: Urine Dipstick-Ancillary (obtain specimen); Complete Time: 16:12 [facility] 01/27 15:41 Order name: Straight Cath; Complete Time: 16:12 [facility] 01/27 15:42 Order name: Straight Cath; Complete Time: 16:12 Administered Medications: 18:18 Drug: NS 0.9% 500 ml Route: IV; Rate: bolus; Site: left antecubital; ss 19:10 Follow up: IV Status: Completed infusion ss 18:20 Drug: Rocephin 2 grams Route: IV; Rate: calculated rate; Site: left antecubital; ss 19:06 Follow up: Response: No adverse reaction; IV Status: Completed infusion ss 18:22 Drug: Zithromax 500 mg Route: IVPB; Infused Over: 1 hrs; Site: left antecubital; ss 19:22 Follow up: IV Status: Completed infusion; IV Intake: 250ml lp1 19:09 Drug: NS 0.9% 1000 ml Route: IV; Rate: 75 ml/hr; Site: left antecubital; ss 21:00 Follow up: IV Status: Infusion continued upon admission lp1 Disposition: 01/28 05:57 Co-signature as Attending Physician, Eyal Kessler MD. rn Disposition: 01/28/20 17:34 Hospitalization ordered by García Talamantes for Inpatient Admission. Preliminary diagnosis are Altered mental status, unspecified, Acute cystitis, Pneumonia due to other specified bacteria. - Bed requested for Telemetry/MedSurg (Inpatient). - Status is Inpatient Admission. lp1 - Condition is Stable. - Problem is new. - Symptoms are unchanged. Signatures: Dispatcher [employer] [facility] Beba Pereyra RN RN Eyal Kessler MD MD rn Smirch, Shelby, RN RN Esme Begum RN RN lp1 Neptali Parra PA PA jr8 Tiarra Maloney, RAHEEM MACIEL Atul Storey RN RN bp Corrections: (The following items were deleted from the chart) 01/27 15:42 15:42 Urine Dipstick-Ancillary ordered. [facility] 15:47 15:42 BASIC METABOLIC PANEL+C.LAB.BRZ ordered. [facility] EDMS 15:48 15:42 CBC+H.LAB.BRZ ordered. [facility] EDMS 18:01 17:34 Hospitalization Ordered by García Talamantes DO for Inpatient Admission. Preliminary dw diagnosis is Altered mental status, unspecified; Acute cystitis; Pneumonia due to other specified bacteria. Bed requested for Telemetry/MedSurg (Inpatient). Status is Inpatient Admission. Condition is Stable. Problem is new. Symptoms are unchanged. jr8 18:40 18:01 01/28/2020 17:34 Hospitalization Ordered by García Talamantes DO for Inpatient dw Admission. Preliminary diagnosis is Altered mental status, unspecified; Acute cystitis; Pneumonia due to other specified bacteria. Bed requested for Telemetry/MedSurg (Inpatient). Status is Inpatient Admission. Condition is Stable. Problem is new. Symptoms are unchanged. dw 20:45 18:40 01/28/2020 17:34 Hospitalization Ordered by García Talamantes DO for Inpatient cg Admission. Preliminary diagnosis is Altered mental status, unspecified; Acute cystitis; Pneumonia due to other specified bacteria. Bed requested for Telemetry/MedSurg (Inpatient). Status is Inpatient Admission. Condition is Stable. Problem is new. Symptoms are unchanged. dw 21:29 20:45 01/28/2020 17:34 Hospitalization Ordered by García Talamantes DO for Inpatient lp1 Admission. Preliminary diagnosis is Altered mental status, unspecified; Acute cystitis; Pneumonia due to other specified bacteria. Bed requested for Telemetry/MedSurg (Inpatient). Status is Inpatient Admission. Condition is Stable. Problem is new. Symptoms are unchanged. cg
--- NOTE | 2020-01-28 17:34 | ER ---
Nurse's Notes [facility] Name: Nilda Gracia Age: 84 yrs Sex: Female : 1935 Arrival Date: 01/28/2020 Time: 14:30 Bed 25 Private MD: Diagnosis: Altered mental status, unspecified;Acute cystitis;Pneumonia due to other specified bacteria Presentation: 01/27 14:30 Chief complaint: EMS states: COUGH AND FEVER OVER THE WEEKEND. Coronavirus screen: bp cough unrelated to allergies, fever. Ebola Screen: No symptoms or risks identified at this time. Initial Sepsis Screen: Does the patient meet any 2 criteria? No. Patient's initial sepsis screen is negative. Does the patient have a suspected source of infection? Yes: Productive cough/pneumonia. Risk Assessment: Do you want to hurt yourself or someone else? Patient reports no desire to harm self or others. Onset of symptoms is unknown. Care prior to arrival: PT USING PROFANITY AND STRIKING AT EMS STAFF, CHRONIC COMBATIVE BEHAVIOR PER STAFF. 14:30 Method Of Arrival: EMS: [facility] bp 14:30 Acuity: GIANFRANCO 3 bp Triage Assessment: 14:36 General: Appears in no apparent distress. uncomfortable, Behavior is agitated, anxious. bp Pain: Denies pain. EENT: No deficits noted. Neuro: Level of Consciousness is awake, confused, Oriented to person. Cardiovascular: No deficits noted. Respiratory: Reports cough that is. GI: No signs and/or symptoms were reported involving the gastrointestinal system. : No signs and/or symptoms were reported regarding the genitourinary system. Derm: No deficits noted. Musculoskeletal: No deficits noted. Historical: - Home Meds: 14:36 memantine 10 mg oral tab 1 tab 2 times per day [Active]; donepezil 10 mg oral tab 1 tab bp once daily [Active]; divalproex 500 mg oral Tb24 1 tab once daily [Active]; lisinopril 5 mg Oral tab 1 tab once daily [Active]; quetiapine 25 mg oral tab 1 tab daily [Active]; diphenoxylate-atropine 2.5-0.025 mg Oral tab 2 tabs once daily [Active]; amlodipine 5 mg tab 1 tab once daily [Active]; - PMHx: 14:36 Dementia; Hypertension; Depression; bp - Immunization history:: Adult Immunizations up to date. - Social history:: Smoking status: Patient denies any tobacco usage or history of. Screenin:38 Abuse screen: Denies threats or abuse. Denies injuries from another. Nutritional ss screening: No deficits noted. Tuberculosis screening: Never had TB. Fall Risk None identified. Assessment: 14:39 General: Appears in no apparent distress. comfortable, Behavior is calm, cooperative. ss General: Pt has no complaints at this time and states she wants to go back to [facility]. . Pain: Denies pain. Neuro: Level of Consciousness is awake, alert, obeys commands. Cardiovascular: Capillary refill < 3 seconds in bilateral fingers. Respiratory: Airway is patent Respiratory effort is even, unlabored, Respiratory pattern is regular, symmetrical, Breath sounds are clear bilaterally. Respiratory: Denies shortness of breath pain with respiration, pain with cough, pain with movement. GI: Patient currently denies abdominal pain, diarrhea, nausea, vomiting. Derm: Skin is intact, is healthy with good turgor, Skin is dry, Skin is pink, warm \T\ dry. normal. 15:45 Reassessment: daughter reports that [facility] told her that patient was ss confused over the weekend and was a little more combative. Daughter is concerned for UTI as patient has a history of these due to a prolapsed bladder. OLEG Rivera notified. 16:45 Reassessment: Patient appears in no apparent distress at this time. No changes from ss previously documented assessment. daughter remains at bedside. 16:45 Reassessment: Awaiting room assignment at this time. ss 18:00 Reassessment: Daughter at bedside. Dr. Talamantes at bedside discussing plan of care/ ss admission. 19:22 Reassessment: Patient appears in no apparent distress at this time. Daughter at lp1 bedside; aware of pending admission. Neuro: Level of Consciousness is awake, obeys commands, Oriented to person, place. 20:04 Reassessment: patient given sandwich, daughter at bedside assisting patient patient lp1 with eating sandwich. Vital Signs: 14:30 BP 110 / 64; Pulse 72; Resp 16; Temp 99.4; Pulse Ox 96% ; bp 14:38 BP 98 / 63; Pulse 62; Resp 17; Temp 98.6(O); Pulse Ox 100% on R/A; Pain 0/10; ss 14:47 BP 106 / 66; ss 16:46 BP 119 / 73; Pulse 62; Resp 16; Pulse Ox 97% on R/A; ss 18:41 Temp 98.4(O); ss 19:00 BP 122 / 76; Pulse 69; Resp 18; Pulse Ox 95% on R/A; lp1 20:30 BP 122 / 57; Pulse 64; Resp 18; Pulse Ox 96% on R/A; lp1 ED Course: 14:30 Patient arrived in ED. bp 14:32 Triage completed. bp 14:38 Madyson Graves, RN is Primary Nurse. ss 14:38 Arm band placed on. bp 14:38 Patient has correct armband on for positive identification. Bed in low position. Call ss light in reach. air sampling and monitoring on. Pulse ox on. NIBP on. 14:38 Patient maintains SpO2 saturation greater than 95% on room air. ss 14:53 Neptali Parra PA is PHCP. jr8 14:53 Eyal Kessler MD is Attending Physician. jr8 15:58 XRAY Chest (1 view) In Process Unspecified. EDMS 16:12 Urine collected: straight cath specimen, cloudy. Straight cath inserted, using sterile ss technique, 16 Fr. Specimen obtained. Inserted saline lock: 22 gauge in left antecubital area, using aseptic technique. Blood collected. 17:33 García Talamantes DO is Hospitalizing Provider. jr8 18:41 No provider procedures requiring assistance completed. Patient admitted, IV remains in ss place. Administered Medications: 18:18 Drug: NS 0.9% 500 ml Route: IV; Rate: bolus; Site: left antecubital; ss 19:10 Follow up: IV Status: Completed infusion ss 18:20 Drug: Rocephin 2 grams Route: IV; Rate: calculated rate; Site: left antecubital; ss 19:06 Follow up: Response: No adverse reaction; IV Status: Completed infusion ss 18:22 Drug: Zithromax 500 mg Route: IVPB; Infused Over: 1 hrs; Site: left antecubital; ss 19:22 Follow up: IV Status: Completed infusion; IV Intake: 250ml lp1 19:09 Drug: NS 0.9% 1000 ml Route: IV; Rate: 75 ml/hr; Site: left antecubital; ss 21:00 Follow up: IV Status: Infusion continued upon admission lp1 Intake: 19:22 IV: 250ml; Total: 250ml. lp1 Outcome: 17:34 Decision to Hospitalize by Provider. cherelle 18:41 Instructed on the need for admit. 19:21 Condition: stable lp1 21:09 Admitted to Med/surg accompanied by tech, via stretcher, room 213, with chart, Report lp1 called to RAHEEM Woods 21:29 Patient left the ED. lp1 Signatures: Dispatcher [employer] EDMadyson Madrigal, RN RN Esme Begum, RN RN lp1 Neptali Parra PA PA jr8 Atul Storey, RN RN bp Corrections: (The following items were deleted from the chart) 18:41 16:45 Temp 98.4F Oral; [facility]
[2020-01-28] MEDS ORDERED: CEFTRIAXONE/SWI 1gm 2 GM/20 ML SYR ONE (17:43)
[2020-01-28] MEDS ORDERED: NA CHLORIDE 0.9% 1,000 ML ONE (17:44)
[2020-01-28] MEDS ORDERED: AZITHROMYCIN IV 500 MG in NA CHLORIDE 0.9% 250 ML IVPB ONE (18:00)
--- NOTE | 2020-01-28 18:01 | P.HP ---
Certification for Inpatient Patient admitted to: Inpatient With expected LOS: >2 Midnights Patient will require the following post-hospital care: Other (alf) Practitioner: I am a practitioner with admitting privileges, knowledge of patient current condition, hospital course, and medical plan of care. Services: Services provided to patient in accordance with Admission requirements found in Title 42 Section 412.3 of the Code of Federal Regulations Patient History Date of Service: 01/28/20 Primary Care Provider: alf Reason for admission: Altered mental status History of Present Illness: 84-year-old female with history of dementia, hypertension, CAD. Patient presented to the emergency room with altered mental status. Daughter at bedside. Daughter reports the patient has been more agitated. When she gets likely as she usually has the UTI. There is no mention of fever, chills. No significant nausea vomiting. No chest pain or shortness of breath. She came to the ER for further evaluation. The ER patient was evaluated peer white count 10.5, hemoglobin 12.1. Sodium 143, potassium 4.1. BUN 36, creatinine 2.11 with a GFR 22. Glucose 77. Chest x-ray shows left lower lobe pneumonia. Urinalysis was positive for pneumonia. Patient given IV antibiotic therapy in the emergency room. Patient admitted for further evaluation and treatment. When I saw the patient ER, she did not appear septic. She appeared resting. Daughter at bedside. Daughter reports that she has had frequent urinary tract infection. Poor appetite noted. Patient seen in 2019 for UTI. Daughter reports no significant shortness of breath. Home medications list reviewed: Yes - Past Medical/Surgical History Diabetic: No -: Hypertension -: Dementia -: CAD -: CABG -: Cardiac stent Psychosocial/ Personal History: [facility]. - Family History Family History: Reviewed- Non-Contributory - Social History Smoking Status: Never smoker Alcohol use: No CD- Drugs: No Caffeine use: No Place of Residence: [facility] Review of Systems is unable to be obtained Physical Examination - Physical Exam General: Alert, In no apparent distress, Cooperative, Demented HEENT: Atraumatic Neck: Supple Respiratory: Clear to auscultation bilaterally, Normal air movement Cardiovascular: Normal pulses Gastrointestinal: Normal bowel sounds, Soft and benign, Non-distended Neurological: Normal speech, Normal strength at 5/5 x4 extr, Normal tone, Dementia - Studies Laboratory Data (last 24 hrs) 01/28/20 16:00: Sodium 143, Potassium 4.1, BUN 36 H, Creatinine 2.11 H, Glucose 77 01/28/20 16:00: WBC 10.5, Hgb 12.1, Hct 36.3, Plt Count 130 L 01/28/20 15:42: Sodium Cancelled, Potassium Cancelled, BUN Cancelled, Creatinine Cancelled, Glucose Cancelled 01/28/20 15:42: WBC Cancelled, Hgb Cancelled, Hct Cancelled, Plt Count Cancelled Assessment and Plan - Plan Impression: Toxic encephalopathy secondary to UTI with suspected left lower lobe pneumonia Acute renal failure suspect chronic Dementia Hypertension CAD with prior CABG Plan: Toxic encephalopathy secondary to UTI with suspected left lower lobe pneumonia: Patient stable at this time. Will admit to further evaluate. Blood, he urine culture obtained. Will start Rocephin and Zithromax to cover for pneumonia and UTI. Await culture results. Maintain he oxygen above 90%. Will evaluate for COVID infection but do not suspect this. Case discussed with daughter. Advanced directives address in detail. Patient is full code. Will monitor closely. Continue to assess. Restart home medication. Will provide DVT prophylaxis-heparin. Acute renal failure suspect possible chronic: Hold lisinopril. Will start IV fluids. Will continue to reassess. Dementia: Continue medication Hypertension: Hold lisinopril. Continue Norvasc. CAD with prior CABG: Will provide DVT prophylaxis. Discharge Plan: Home Plan to discharge in: 72 Hours - Advance Directives Does patient have a Living Will: No Does patient have a Durable POA for Healthcare: No - Code Status/Comfort Care Code Status Assessed: Yes (Patient full code) Time Spent Managing Pts Care (In Minutes): 55
[2020-01-28] MEDS: NA CHLORIDE 0.9% 1,000 ML IV SCH (21:52)
[2020-01-28] MEDS ORDERED: ONDANSETRON 4 MG/2 ML VIAL IV PRN (21:52)
[2020-01-28] MEDS ORDERED: ACETAMINOPHEN 500 MG TAB PO PRN (21:52)
[2020-01-28] MEDS ORDERED: AMLODIPINE 5 MG TAB PO ONE (21:52)
[2020-01-28] MEDS: DIVALPROEX ER 250 MG TAB PO SCH (22:39)
[2020-01-28] MEDS: DONEPEZIL HCL 5 MG TAB PO SCH (22:40)
[2020-01-28] MEDS: HEPARIN 5000 UNIT/ML 1 ML VIAL SQ SCH (22:40)
[2020-01-28] MEDS: MEMANTINE HCL 10 MG TABLET PO SCH (22:41)
[2020-01-29] MEDS: NA CHLORIDE 0.9% 1,000 ML IV SCH (02:27)
[2020-01-29 06:14] LABS: Magnesium 2.1 mg/dL (1.8-2.4); Potassium 4.1 mmol/L (3.5-5.1)
[2020-01-29 06:32] LABS: Thyroid Stimulating Hormone 4.26 uIU/mL (0.360-3.740)
[2020-01-29 06:37] LABS: Absolute Lymphocytes (CBC) 1.2 K/uL (0.7-4.9); Basophils % 0.4 % (0-1.3); Hematocrit 30.7 % (36.0-45.0); Lymphocytes % 14.3 % (15.3-44.8); MPV 10.8 fL (7.6-11.3); RBC Red Blood Cell Count 3.22 M/uL (3.86-4.86)
[2020-01-29] MEDS ORDERED: NACHLORIDE 0.45% 1,000 ML IV SCH (07:00)
[2020-01-29] MEDS ORDERED: AZITHROMYCIN IV 250 MG in NA CHLORIDE 0.9% 250 ML IVPB SCH ×2 (09:00→18:00)
[2020-01-29] MEDS ORDERED: CEFTRIAXONE 1 GM/NS 50 ML 1 GM/50 ML BAG IV SCH (09:00)
[2020-01-29] MEDS: MEMANTINE HCL 10 MG TABLET PO SCH ×2 (09:50→20:44)
[2020-01-29] MEDS: HEPARIN 5000 UNIT/ML 1 ML VIAL SQ SCH ×2 (09:50→20:44)
--- NOTE | 2020-01-29 11:04 | P.PN ---
Subjective Date of Service: 01/29/20 Primary Care Provider: detention Chief Complaint: Altered mental status Subjective: Improving, Demented Physical Examination - Vital Signs Temperature: 96.9 F Blood Pressure: 122/58 Pulse: 58 Respirations: 12 Pulse Ox (%): 96 - Physical Exam General: Alert, Demented Respiratory: Clear to auscultation bilaterally Cardiovascular: Normal pulses, Regular rate/rhythm Neurological: Normal speech, Normal strength at 5/5 x4 extr, Normal tone, Dementia - Studies Laboratory Data (last 24 hrs) 01/28/20 16:00: Sodium 143, Potassium 4.1, BUN 36 H, Creatinine 2.11 H, Glucose 77 01/28/20 16:00: WBC 10.5, Hgb 12.1, Hct 36.3, Plt Count 130 L 01/28/20 15:42: Sodium Cancelled, Potassium Cancelled, BUN Cancelled, Creatinine Cancelled, Glucose Cancelled 01/28/20 15:42: WBC Cancelled, Hgb Cancelled, Hct Cancelled, Plt Count Cancelled Medications List Reviewed: Yes Assessment & Plan Discharge Plan: Home Plan to discharge in: 24 Hours Physician Review Additional Text: Impression: Toxic encephalopathy secondary to recurrent UTI with possible atelectasis to the left base Acute renal failure suspect chronic stage III Dementia Hypertension CAD with prior CABG Plan: Toxic encephalopathy secondary to recurrent UTI with possible atelectasis to the left base: Patient doing well this time. Patient on Rocephin and Zithromax. Will consider discontinuing Zithromax as I suspect the original x-ray likely more atelectasis. No respiratory distress noted. Urine culture and blood culture pending at this time. Will consider getting chest x-ray but patient may not be amenable to this due to her dementia. Will continue to monitor closely. Patient with history of recurrent UTI. Anticipate improvement over the next 24 hr with possible discharge at that time. Await urine culture results. I will turn the service over to the hospitalist team tomorrow. I will go over the plan of care with him. Acute renal failure suspect possible chronic stage III: Continue to Hold lisinopril. Will adjust IV fluids. Will obtain renal ultrasound. Will consult nephrology for recommendations. Will continue to reassess. Dementia: Continue medication Hypertension: Hold lisinopril due to chronic renal disease. Continue Norvasc. CAD with prior CABG: Will provide DVT prophylaxis. Time Spent Managing Pts Care (In Minutes): 55
[2020-01-29] MEDS ORDERED: QUETIAPINE 25 MG TAB PO PRN (11:05)
[2020-01-29] MEDS: D5 0.45 NS 1,000 ML IV SCH (12:02)
--- NOTE | 2020-01-29 15:12 | P.CNS ---
Date of Consult: 01/29/20 Primary Care Provider: senior living Chief Complaint: Altered mental status History of Present Illness: 84-year-old female with history of dementia, hypertension, CAD. Patient presented to the emergency room with altered mental status. Daughter at bedside. Daughter reports the patient has been more agitated. When she gets likely as she usually has the UTI. There is no mention of fever, chills. No significant nausea vomiting. No chest pain or shortness of breath. She came to the ER for further evaluation. 17:34 This 84 yrs old Female presents to ER via EMS with complaints of Cough. jr8 17:34 The patient or guardian reports cough, that is intermittent, described as mild. Onset: jr8 The symptoms/episode began/occurred gradually, 3 day(s) ago. Severity of symptoms: At their worst the symptoms were mild, in the emergency department the symptoms are unchanged. Modifying factors: The symptoms are alleviated by nothing, the symptoms are aggravated by nothing. Associated signs and symptoms: Pertinent positives: altered mental status . The patient has experienced similar episodes in the past, a few times. The patient has not recently seen a physician. Mother stated that NH called today saying that patient had mild cough and altered mentation. Daughter stated that when she has had altered mentation in past it was from a UTI. EMS was called at that time to bring her to ED for further evaluation . Allergies No Known Allergies Allergy (Unverified 01/28/20 23:53) Home Medications: Amlodipine [Norvasc*] 5 mg PO DAILY 01/29/20 Diphenoxylate HCl/Atropine [Diphenoxylate-Atrop 2.5-0.025] 2 tab PO DAILY 01/29/20 Divalproex Sodium [Depakote] 500 mg PO DAILY 01/29/20 Donepezil HCl 10 mg PO DAILY 01/29/20 Lisinopril [Zestril] 5 mg PO DAILY 01/29/20 Memantine HCl [Namenda*] 10 mg PO BID 01/29/20 Quetiapine [Seroquel*] 25 mg PO DAILY 01/29/20 - Past Medical/Surgical History Diabetic: No -: Hypertension -: Dementia -: CAD -: CABG -: Cardiac stent Psychosocial/ Personal History: Patient lives at the alf. - Social History Alcohol use: No CD- Drugs: No Caffeine use: No Place of Residence: [facility] Physical Examination Temp Pulse Resp BP Pulse Ox 96.7 F L 56 14 127/58 L 96 01/29/20 12:00 01/29/20 12:00 01/29/20 12:00 01/29/20 12:00 01/29/20 11:04 General: Cooperative, Confused HEENT: Atraumatic Neck: Supple Respiratory: Clear to auscultation bilaterally Cardiovascular: No edema, Regular rate/rhythm Gastrointestinal: Soft and benign, Non-distended Musculoskeletal: No clubbing, No contractures Integumentary: No rashes, No cyanosis Neurological: Normal speech Laboratory Data (last 24 hrs) 01/28/20 16:00: Sodium 143, Potassium 4.1, BUN 36 H, Creatinine 2.11 H, Glucose 77 01/28/20 16:00: WBC 10.5, Hgb 12.1, Hct 36.3, Plt Count 130 L 01/28/20 15:42: Sodium Cancelled, Potassium Cancelled, BUN Cancelled, Creatinine Cancelled, Glucose Cancelled 01/28/20 15:42: WBC Cancelled, Hgb Cancelled, Hct Cancelled, Plt Count Cancelled Imagings Data: EXAM DESCRIPTION: RAD - Chest Single View - 01/28/2020 3:58 pm CLINICAL HISTORY: COUGH Chest pain. COMPARISON: No comparisons FINDINGS: Portable technique limits examination quality. Small opacity is present in the medial left lung base retro cardiac region likely representing a mild pneumonia/ infiltrate. Aortic arch is prominent with postsurgical changes of a CABG present. Bones are osteopenic. Conclusions/Impression: A/ HILDA likely due to hypovolemia Hypernatremia Hypocalcemia CKD III with proteinuria HTN with CKD Anemia in chronic illness Toxic metabolic encephalopathy Acute cystitis P/ Continue current POC and Medications Continue IVF Continue abx. Follow up cultures. No NSAIDs AM labs. Daily weight Thank you kindly for the consultation.
[2020-01-29] MEDS: CEFTRIAXONE/SWI 1gm 1 GM/10 ML SYR IV SCH (16:40)
--- NOTE | 2020-01-29 19:14 | RAD REPORT ---
EXAM DESCRIPTION: US - Renal Ultrasound-Complete - 01/29/2020 6:52 pm CLINICAL HISTORY: Acute and chronic renal failure COMPARISON: None. FINDINGS: The right kidney measures 9 cm with an increased echotexture. The patient refused to continue with the exam so images of the left kidney were not obtained. Hydronephrosis is not seen. No gross abnormality of bladder is seen IMPRESSION: Increased renal echotexture consistent with parenchymal disease Left kidney was not imaged
[2020-01-29] MEDS: DIVALPROEX ER 250 MG TAB PO SCH (20:43)
[2020-01-29] MEDS: DONEPEZIL HCL 5 MG TAB PO SCH (20:43)
[2020-01-30 05:44] LABS: Magnesium 2.1 mg/dL (1.8-2.4); Potassium 3.7 mmol/L (3.5-5.1)
[2020-01-30 06:13] LABS: Absolute Lymphocytes (CBC) 1.5 K/uL (0.7-4.9); Basophils % 0.9 % (0-1.3); Hematocrit 31.7 % (36.0-45.0); Lymphocytes % 16.9 % (15.3-44.8); MPV 10.6 fL (7.6-11.3); RBC Red Blood Cell Count 3.36 M/uL (3.86-4.86)
[2020-01-30] MEDS: D5 0.45 NS 1,000 ML IV SCH (08:25)
[2020-01-30] MEDS: HEPARIN 5000 UNIT/ML 1 ML VIAL SQ SCH ×2 (08:26→21:14)
[2020-01-30] MEDS: MEMANTINE HCL 10 MG TABLET PO SCH ×2 (08:26→21:13)
[2020-01-30] MEDS: AMLODIPINE 5 MG TAB PO SCH (08:32)
[2020-01-30] MEDS ORDERED: HOME MED 1 EA UNK (Donepezil Hcl [Donepezil Hcl] 10 MG) PO SCH (09:00)
--- NOTE | 2020-01-30 13:29 | P.DS ---
Admission Date: 01/28/20 Discharge Date: 01/31/20 Primary Care Provider: [facility] Disposition: TRANSFER TO [facility] Discharge Condition: FAIR Reason for Admission: Altered mental status Consultations: Nephrology Brief History of Present Illness: 84-year-old woman with a history of hypertension, coronary artery disease, dementia was brought to the emergency department due to altered mental status and agitation. Family attributed her symptoms to UTI. Patient was found to have pneumonia by chest x-ray in the ED. Her urinalysis in the ED also suggested the presence of UTI. Patient was admitted for further management. Hospital Course: Patient admitted to the medical floor and treated with IV antibiotics which included Rocephin and Zithromax. Her urine culture yielded polymicrobial growth. Blood culture yielded no growth. Patient clinically improved with treatment. She was not hypoxic and did not require oxygen. She had evidence of acute renal failure. She was seen and evaluated by nephrology. The acute renal failure resolved with IV hydration. Patient has overall clinically improved. She is needing assistance with feeding and ambulation. She is discharged with 3 more days of Cefdinir to complete treatment for the UTI. Vital Signs/Physical Exam: Temp Pulse Resp BP Pulse Ox 96.7 F L 61 16 134/62 98 01/30/20 12:00 01/30/20 12:00 01/30/20 12:00 01/30/20 12:00 01/30/20 12:00 General: In no apparent distress, Other (Awake.) Neck: Supple Respiratory: Clear to auscultation bilaterally, Normal air movement Cardiovascular: No edema, Regular rate/rhythm, Normal S1 S2 Gastrointestinal: Normal bowel sounds, Non-distended, No tenderness Musculoskeletal: No swelling, No erythema Integumentary: No rashes Neurological: Other (Nonfocal) Laboratory Data at Discharge: WBC 8.6 K/uL (4.3-10.9) 01/30/20 05:16 Hgb 10.8 g/dL (12.0-15.0) L 01/30/20 05:16 Hct 31.7 % (36.0-45.0) L 01/30/20 05:16 Plt Count 143 K/uL (152-406) L D 01/30/20 05:16 Sodium 143 mmol/L (136-145) 01/30/20 05:16 Potassium 3.7 mmol/L (3.5-5.1) 01/30/20 05:16 BUN 21 mg/dL (7-18) H 01/30/20 05:16 Creatinine 1.19 mg/dL (0.55-1.3) 01/30/20 05:16 Glucose 95 mg/dL (74-106) 01/30/20 05:16 Magnesium 2.1 mg/dL (1.8-2.4) 01/30/20 05:16 Home Medications: Amlodipine [Norvasc*] 5 mg PO DAILY 01/29/20 Diphenoxylate HCl/Atropine [Diphenoxylate-Atrop 2.5-0.025] 2 tab PO DAILY 01/29/20 Divalproex Sodium [Depakote] 500 mg PO DAILY 01/29/20 Donepezil HCl 10 mg PO DAILY 01/29/20 Memantine HCl [Namenda*] 10 mg PO BID 01/29/20 Quetiapine [Seroquel*] 25 mg PO DAILY 01/29/20 Cefdinir [Cefdinir*] 300 mg PO BID #6 cap 01/30/20 Ensure Enlive 237 ml PO BID can 01/30/20 New Medications: Cefdinir [Cefdinir*] 300 mg PO BID #6 cap Followup: Gregg Omer DO [ACTIVE - CAN ADMIT] - Time spent managing pt's care (in minutes): 34
[2020-01-30] MEDS: CEFTRIAXONE/SWI 1gm 1 GM/10 ML SYR IV SCH (16:04)
[2020-01-30 18:12] VITALS: BMI 19.8
--- NOTE | 2020-01-30 18:36 | P.PN ---
Subjective Date of Service: 01/30/20 Primary Care Provider: [facility] Chief Complaint: Altered mental status No new changes. Patient has no complain. She appeared confused. Physical Examination - Vital Signs Temperature: 97.0 F Blood Pressure: 122/93 Pulse: 68 Respirations: 16 Pulse Ox (%): 96 - Physical Exam General: Confused, Other (Awake) HEENT: Mucous membr. moist/pink Neck: Supple Respiratory: Clear to auscultation bilaterally, Normal air movement Cardiovascular: No edema, Regular rate/rhythm, Normal S1 S2 Gastrointestinal: Normal bowel sounds, Soft and benign, No tenderness Musculoskeletal: No swelling Integumentary: No rashes Neurological: Other (Nonfocal) - Studies Medications List Reviewed: Yes Assessment And Plan - Plan Toxic encephalopathy/UTI Currently at baseline. Urine culture: Polymicrobial growth. Continue antibiotic. Transition to Omnicef on discharge. PT notes reviewed. Patient is weak and needing assistance with ambulation. Anticipate disposition to skilled rehab. Pneumonia Clinically improved. Clinically stable Continue antibiotics. Acute renal failure suspect chronic stage III Acute renal failure resolved. Resume lisinopril on discharge. Dementia Stable. Hypertension Stable CAD with prior CABG Stable
[2020-01-30] MEDS: DONEPEZIL HCL 5 MG TAB PO SCH (21:13)
[2020-01-30] MEDS: ENSURE ENLIVE 237 ML CAN PO SCH (21:13)
[2020-01-30] MEDS: DIVALPROEX ER 250 MG TAB PO SCH (21:13)
--- NOTE | 2020-01-30 21:37 | P.PN ---
Date of Service: 01/30/20 Vital Signs Temp Pulse Resp BP Pulse Ox 97.0 F 68 16 122/93 H 96 01/30/20 18:35 01/30/20 18:35 01/30/20 18:35 01/30/20 18:35 01/30/20 18:35 Medications Acetaminophen (Tylenol -Extra Strength) 500 mg PO Q4HP PRN PRN Reason: TEMP > 101' F Stop: 02/27/20 21:53 Amlodipine Besylate (Norvasc) 5 mg PO DAILY DEBORAH Stop: 02/29/20 09:01 Last Admin: 01/30/20 08:32 Dose: 5 mg Documented by: Divalproex Sodium (Depakote *Er*) 500 mg PO BEDTIME DEBORAH Stop: 02/27/20 21:53 Last Admin: 01/30/20 21:13 Dose: 500 mg Documented by: Donepezil HCl (Aricept) 10 mg PO BEDTIME DEBORAH Stop: 02/27/20 21:53 Last Admin: 01/30/20 21:13 Dose: 10 mg Documented by: Heparin Sodium (Porcine) (Heparin 5,000 Units/Ml) 5,000 unit SQ Q12HR DEBORAH Stop: 02/27/20 21:53 Last Admin: 01/30/20 21:14 Dose: 5,000 unit Documented by: Ceftriaxone Sodium/Sodium Chloride (Rocephin 1 Gm/10 Ml Swi Ivp) 1 gm in 10 mls @ 600 mls/hr IV DAILY 5 PM [facility]; Protocol Stop: 02/28/20 17:01 Last Admin: 01/30/20 16:04 Dose: 10 mls Documented by: Dextrose/Sodium Chloride (Dextrose 5% O.45% Saline) 1,000 mls @ 50 mls/hr IV .Q20H [facility] Stop: 02/28/20 12:01 Last Admin: 01/30/20 08:25 Dose: 1,000 mls Documented by: Memantine (Namenda) 10 mg PO BID DEBORAH Stop: 02/27/20 21:53 Last Admin: 01/30/20 21:13 Dose: 10 mg Documented by: Nutritional Formula (Ensure Enlive) 237 ml PO BID [facility] Stop: 02/29/20 21:01 Last Admin: 01/30/20 21:13 Dose: 237 ml Documented by: Ondansetron HCl (Zofran) 4 mg IV Q6HP PRN PRN Reason: NAUSEA / VOMITING Stop: 02/27/20 21:53 Quetiapine Fumarate (Seroquel) 25 mg PO DAILY PRN PRN Reason: AGITATION Stop: 02/29/20 09:01 Sodium Chloride (Normal Saline Flush) 10 ml IV BID DEBORAH Stop: 02/27/20 21:53 Last Admin: 01/30/20 21:00 Dose: Not Given Documented by: Microbiology Results 01/28/20 16:02 Clean Catch Urine [place] Count - Preliminary BETWEEN 10,000 & 100,000 CFU/ML 01/28/20 16:02 Clean Catch Urine - Preliminary MIXED RAMOS. Assessment/ Plan: Nephrology CPS stable without CP or SOB. No acute events overnight. Limited IH/ ROS due to AMS. Vitals, medications, blood work and imaging reviewed in the chart. General: Cooperative, Confused HEENT: Atraumatic Neck: Supple Respiratory: Clear to auscultation bilaterally Cardiovascular: No edema, Regular rate/rhythm Gastrointestinal: Soft and benign, Non-distended Musculoskeletal: No clubbing, No contractures Integumentary: No rashes, No cyanosis Neurological: Normal speech Laboratory Data (last 24 hrs) 01/28/20 16:00: Sodium 143, Potassium 4.1, BUN 36 H, Creatinine 2.11 H, Glucose 77 01/28/20 16:00: WBC 10.5, Hgb 12.1, Hct 36.3, Plt Count 130 L 01/28/20 15:42: Sodium Cancelled, Potassium Cancelled, BUN Cancelled, Creatinine Cancelled, Glucose Cancelled 01/28/20 15:42: WBC Cancelled, Hgb Cancelled, Hct Cancelled, Plt Count Cancelled Imagings Data: EXAM DESCRIPTION: RAD - Chest Single View - 01/28/2020 3:58 pm CLINICAL HISTORY: COUGH Chest pain. COMPARISON: No comparisons FINDINGS: Portable technique limits examination quality. Small opacity is present in the medial left lung base retro cardiac region likely representing a mild pneumonia/ infiltrate. Aortic arch is prominent with postsurgical changes of a CABG present. Bones are osteopenic. Conclusions/Impression: A/ HILDA likely due to hypovolemia Hypernatremia Hypocalcemia CKD III with proteinuria HTN with CKD Anemia in chronic illness Toxic metabolic encephalopathy Acute cystitis P/ Continue current POC and Medications Continue IVF Continue abx. Follow up cultures. No NSAIDs AM labs. Daily weight
[2020-01-31] MEDS: D5 0.45 NS 1,000 ML IV SCH (04:14)
[2020-01-31 04:38] LABS: Magnesium 1.7 mg/dL (1.8-2.4); Potassium 3.4 mmol/L (3.5-5.1)
[2020-01-31 04:57] LABS: Absolute Lymphocytes (CBC) 1.9 K/uL (0.7-4.9); Basophils % 0.6 % (0-1.3); Hematocrit 30.6 % (36.0-45.0); Lymphocytes % 22.4 % (15.3-44.8); MPV 10.5 fL (7.6-11.3); RBC Red Blood Cell Count 3.24 M/uL (3.86-4.86)
[2020-01-31] MEDS: MEMANTINE HCL 10 MG TABLET PO SCH (07:29)
[2020-01-31] MEDS: HEPARIN 5000 UNIT/ML 1 ML VIAL SQ SCH (07:29)
[2020-01-31] MEDS ORDERED: POTASSIUM CL SA 10 MEQ TAB PO ONE (07:36)
[2020-01-31] MEDS ORDERED: KCL 20 MEQ/100 mL IVPB 20 MEQ/100 ML BAG IV SCH (08:00)
[2020-01-31] MEDS ORDERED: MAGNESIUM SULFATE 1 gm IVPB 1 GM/100 ML BAG IV ONE (08:00)
[2020-01-31] MEDS: AMLODIPINE 5 MG TAB PO SCH (09:16)
[2020-01-31] MEDS: ENSURE ENLIVE 237 ML CAN PO SCH (09:17)
[2020-01-31 11:06] VITALS: O2SAT 92
[2020-01-31 17:13] VITALS: BP 148/78; TEMP 97.3
--- NOTE | 2020-01-31 23:03 | P.PN ---
Date of Service: 01/31/20 Vital Signs Temp Pulse Resp BP Pulse Ox 97.3 F 61 16 148/78 H 99 01/31/20 16:00 01/31/20 16:00 01/31/20 16:00 01/31/20 16:00 01/31/20 16:00 Microbiology Results 01/28/20 16:02 Clean Catch Urine [place] Count - Final >100,000 CFU/ML. 01/28/20 16:02 Clean Catch Urine - Final MIXED RAMOS. Assessment/ Plan: Nephrology CPS stable without CP or SOB. No acute events overnight. Limited IH/ ROS due to AMS. Vitals, medications, blood work and imaging reviewed in the chart. General: Cooperative, Confused HEENT: Atraumatic Neck: Supple Respiratory: Clear to auscultation bilaterally Cardiovascular: No edema, Regular rate/rhythm Gastrointestinal: Soft and benign, Non-distended Musculoskeletal: No clubbing, No contractures Integumentary: No rashes, No cyanosis Neurological: Normal speech Laboratory Data (last 24 hrs) 01/28/20 16:00: Sodium 143, Potassium 4.1, BUN 36 H, Creatinine 2.11 H, Glucose 77 01/28/20 16:00: WBC 10.5, Hgb 12.1, Hct 36.3, Plt Count 130 L 01/28/20 15:42: Sodium Cancelled, Potassium Cancelled, BUN Cancelled, Creatinine Cancelled, Glucose Cancelled 01/28/20 15:42: WBC Cancelled, Hgb Cancelled, Hct Cancelled, Plt Count Cancelled Imagings Data: EXAM DESCRIPTION: RAD - Chest Single View - 01/28/2020 3:58 pm CLINICAL HISTORY: COUGH Chest pain. COMPARISON: No comparisons FINDINGS: Portable technique limits examination quality. Small opacity is present in the medial left lung base retro cardiac region likely representing a mild pneumonia/ infiltrate. Aortic arch is prominent with postsurgical changes of a CABG present. Bones are osteopenic. Conclusions/Impression: A/ HILDA likely due to hypovolemia Hypernatremia Hypocalcemia CKD III with proteinuria HTN with CKD Anemia in chronic illness Toxic metabolic encephalopathy Acute cystitis P/ Continue current POC and Medications Continue IVF Replete lytes as needed. Continue abx. Follow up cultures. Encourage nutrition. No NSAIDs AM labs. Daily weight
[2020-02-01] MEDS ORDERED: CALCITROL 0.25 MCG CAP PO SCH (09:00)
[2020-02-01] MEDS ORDERED: VITAMIN D 5,000 UNIT CAP PO SCH (09:00)
== END 2020-01-31 17:36 | DRG 682 ==
LOC: ER 14:31 → ERHOLD 17:48 → 2ND 21:12
PROVIDERS: ADMIT Family Medicine; ATTEND Internal Medicine
DX: N17.9 Acute kidney failure, unspecified (principal); J18.1 Lobar pneumonia, unspecified organism; G92 Toxic encephalopathy; N30.00 Acute cystitis without hematuria; E87.0 Hyperosmolality and hypernatremia; F03.90 Unspecified dementia, unspecified severity, without behavioral disturbance, psychotic disturbance, mood disturbance, and anxiety; I12.9 Hypertensive chronic kidney disease with stage 1 through stage 4 chronic kidney disease, or unspecified chronic kidney disease; N18.3 Chronic kidney disease, stage 3 (moderate); I25.10 Atherosclerotic heart disease of native coronary artery without angina pectoris; E86.1 Hypovolemia; D63.1 Anemia in chronic kidney disease; E83.51 Hypocalcemia; Z95.1 Presence of aortocoronary bypass graft; Z11.59 Encounter for screening for other viral diseases
CPT/HCPCS: 36415; 51702; 71045; 76770; 80048; 81003; 81015; 83735; 84132; 84439; 84443; 85025; 87040; 87086; 87088; 96361; 96365; 97116; 97161; 97530; 99285; J0456; J0696; J1644; J3475; J3480; J7030; J7050; J7799; U0003

== ENCOUNTER 2020-05-04 18:58 | Emergency (ER) | payer OTHER, BC ==
--- OUTSIDE RECORDS SUMMARY | 2020-05-04 19:00 | XMS REPORT | Continuity of Care Document ---
:1935 Author Organization [employer] Information Age of Learning Care Team Providers Name Role Phone [employer] Age of Learning Unavailable Un available Problems Problem Status Onset [...] Tablet 90 tab, 3 [Depakote] Refill(s), Pharmacy: [id number] 24 HR Divalproex 500 mg = 1 Inactive Mis kristal Sodium 500 MG tab, PO, 019 [facility] Extended Release Bedtime, X Tablet 90 day, # [Depakote] 90 tab, 3 Refill(s), Pharmacy: [facility] #[id number] Memantine 10 mg = 1 Active Mischer hydrochloride 10 tab, PO, 019 Neuro MG Oral Tablet BID, # 60 [Namenda] tab, 3 Refill(s), Pharmacy: [facility] #[id number] QUEtiapine 25 mg 25 mg, PO, Active Misc her oral tablet PRN, PRN 019 Neuro Agitation, # 30 tab, 2 Refill(s), Pharmacy: [id number] donepezil 10 mg 10 mg = 1 Active Mische r oral tablet tab, PO, 019 Neuro Bedtime, # 30 tab, 3 Refill(s), Pharmacy: [id number] 24 HR Divalproex 500 mg = 1 Active Misc her Sodium 500 MG tab, PO, 019 Neuro Extended Release Bedtime, # Tablet 30 tab, 3 [Depakote] Refill(s), Pharmacy: [id number] Memantine 10 mg = 1 Active Mischer hydrochloride 10 tab, PO, 019 Neuro MG Oral Tablet BID, # 60 [Namenda] tab, 3 Refill(s), Pharmacy: [facility] [id number] donepezil 10 mg 10 mg = 1 Active Mische r oral tablet tab, PO, 019 Neuro Bedtime, # 30 tab, 3 Refill(s), Pharmacy: [facility] #[id number] QUEtiapine 25 mg 25 mg, PO, Active Misc her oral tablet PRN, PRN 019 Neuro Agitation, # 30 tab, 2 Refill(s), Pharmacy: [facility] #[id number] donepezil 10 mg 10 mg = 1 Active Mische r oral tablet tab, PO, 019 Neuro Bedtime, # 30 tab, 3 Refill(s), Pharmacy: [facility] #[id number] Memantine 10 mg = 1 Active Mischer hydrochloride 10 tab, PO, 019 Neuro MG Oral Tablet BID, # 60 [Namenda] tab, 3 Refill(s), Pharmacy: [facility] #[id number] metoprolol 50 mg = 1 Active [...] [facility] Heart Rate 62 05/16/2019 [facility] Respitory Rate 16 05/16/2019 [facility] Height 162.56 cm 05/16/2019 [facility] Weight 54.545 05/16/2019 [facility] BMI Calculated 20.64 05/16/2019 [facility] Systolic (mm Hg) 131 02/14/2019 [facility] Diastolic (mm Hg) 83 02/14/2019 [facility] Heart Rate 50 02/14/2019 [facility] Respitory Rate 16 02/14/2019 [facility] Height 162.56 cm 02/14/2019 [facility] Weight 58.182 02/14/2019 [facility] BMI Calculated 22.02 02/14/2019 [facility] Height 152.4 cm 12/13/2018 [facility] Weight 58.182 12/13/2018 [facility] BMI Calculated 25.05 12/13/2018 [facility] Heart Rate 68 12/13/2018 [facility] Respitory Rate 16 12/13/2018 [facility] Systolic (mm Hg) 135 12/13/2018 [facility] Diastolic (mm Hg) 80 12/13/2018 [facility] BMI Calculated 22.53 11/10/2018 [facility] Weight 59.545 11/10/2018 [facility] Respitory Rate 16 11/10/2018 [facility] Height 162.56 cm 11/10/2018 [facility] Systolic (mm Hg) 120 [place] [facility] [place] [facility] Diastolic (mm Hg) 77 [place]10[place] [facility] [place] Location Encounter Encounter Reason Attending ADM DC Stat us Source Details Type Number For Provider Date Date Visit Outpatient [id number] Brock 11/08 Active [facility] [place] [facility] [id number] Brock 11/08 11[place]08 [facility] [place] [facility] [id number] Brock 11/08 11[place]09 [facility] [place] [facility] [place] [id number] Brock 11/10 Active [facility] [place] [facility] [id number] Brock 11/10 11[place]11 [facility] [place] [facility] [id number] Brock 12/13 Active [facility] [place] [facility] Out[facility] [id number] Brock 12/13 12/14 [facility] [place] [facility] [id number] Brock 02/14 Active [facility] [place] [facility] Out[facility] [id number] Brock 02/14 02/15 [facility] [place] [facility] [id number] Brock 05/16 Active [facility] Outpatient [id number] Brock 05/16 05[place]17 [facility] [place] [facility] [id number] Brock 08/14 Active [facility] [place] [facility] Out[facility] [id number] Brock 08/14 08/15 [facility] [place] [facility] [id number] Brock 11/14 Active [facility] Amb[facility] [id number] Brock 11/14 11/14 [facility] [place] [facility] Procedures Procedure Code Date Perfomer Comments Source Bypass [id number] [facility] [place] [facility] [place] and Plan No Data Provided for This Section Plan of Care No Data Provided for This Section Social History Social History Date Source Social History TypeResponse 11/10/2018 [facility] [place] [facility] Employment/School Status: Retired.1 Smoking Status Never smoker; Exposure to Tobacco Smoke Unable to obtain; Cigarette Smoking Last 365 Days Unable to obtain; Reg Smoking Cessation Counseling No entered on: 08/15/19 1May release medical information to Josefina Bailey and [employer]- Gino valdez Family History No Data Provided for This Section Advance Directives No Data Provided for This Section Functional Status No Data Provided for This Section
--- OUTSIDE RECORDS SUMMARY | 2020-05-04 19:01 | XMS REPORT | Continuity of Care Document ---
:1935 Author Organization [facility] t Address [address] [place] [address] Care Team Providers Name Role Phone Lex [...] 2019-11-17 M emoria ve 21:17:16 l disorder, [place] systemic Hypertensi arterial ve (disorder) disorder, systemic [...] tab, 3 Release Refill(s), Tablet Pharmacy: [Depakote] [facility] #[id number] 24 HR 2018-06 No 500 mg = 1 Memori a Divalproex 2-26 tab, PO, l Sodium 500 21:34: Bedtime, X H ermann MG Extended 16 90 day, # Release 90 tab, 3 Tablet Refill(s), [Depakote] Pharmacy: [facility] #[id number] Memantine 2018-06 Yes 10 mg = 1 Mem oria hydrochlori 2-04 tab, PO, l de 10 MG 16:04: BID, # 60 Herm rosi Oral Tablet 24 tab, 3 [Namenda] Refill(s), Pharmacy: [facility] #[id number] QUEtiapine 2018-06 Yes 25 mg, PO, M emoria 25 mg oral 2-04 PRN, PRN l tablet 16:04: Agitation, Sherly nn 10 # 30 tab, 2 Refill(s), Pharmacy: [facility] #[id number] donepezil 2018-06 Yes 10 mg = 1 Mem oria 10 mg oral 2-04 tab, PO, l tablet 16:01: Bedtime, # Sherly nn 28 30 tab, 3 Refill(s), Pharmacy: [facility] #[id number] 24 HR 2018-06 Yes 500 [...] Tablet 00 tab, 3 [Namenda] Refill(s), Pharmacy: [facility] #[id number] donepezil 2019- Yes 10 mg = 1 Mem oria 10 mg oral 9-04 tab, PO, l tablet 14:29: Bedtime, # Sherly nn 56 30 tab, 3 Refill(s), Pharmacy: [facility] #[id number] QUEtiapine 2018- Yes 25 mg, PO, M emoria 25 mg oral 7-03 PRN, PRN l tablet 14:35: Agitation, Sherly nn 00 # 30 tab, 2 Refill(s), Pharmacy: [facility] #[id number] donepezil 2019-0 Yes 10 mg = 1 Mem oria 10 mg oral 5-31 tab, PO, l tablet 15:03: Bedtime, # Sherly nn 00 30 tab, 3 Refill(s), Pharmacy: [id number] Memantine 2019-0 Yes 10 mg = 1 Mem oria hydrochlori 5-31 tab, PO, l de 10 MG 15:03: BID, # 60 Herm rosi Oral Tablet 00 tab, 3 [Namenda] Refill(s), Pharmacy: [facility][id number] metoprolol 2019-0 Yes 50 mg = 1 Me moria succinate 5-31 cap, PO, l 50 mg oral 13:52: Daily, 0 Her fuentes capsule, 00 Refill(s) extended release Thyroxine 2019-0 Yes 25 Memoria 5-31 microgram, l 13:52: PO, Daily, Onofre 0 Refill(s) rosuvastati 2019-0 Yes 10 mg, [...] rial [place] Diastolic (mm Hg) 2019-08-15 15:32:00 [facility] orial [place] Heart Rate 2019-08-15 15:32:00 [facility] [place] Respitory Rate 2019-08-15 15:32:00 [facility] [place] Height 2019-08-15 15:32:00 157.48 cm [facility] [place] Weight 2019-08-15 15:32:00 [facility] [place] BMI Calculated 2019-08-15 15:32:00 [facility] [place] Systolic (mm Hg) 2019-05-16 15:10:00 Pra[facility] rial [place] Diastolic (mm Hg) 2019-05-16 15:10:00 Mem orial [place] Heart Rate 2019-05-16 15:10:00 [facility] [place] Respitory Rate 2019-05-16 15:10:00 [facility] [place] Height 2019-05-16 15:10:00 162.56 cm [facility] [place] Weight 2019-05-16 15:10:00 [facility] [place] BMI Calculated 2019-05-16 15:10:00 [facility] [place] Systolic (mm Hg) 2019-02-14 14:14:00 Praful rial [place] Diastolic (mm Hg) 2019-02-14 14:14:00 Mem orial [place] Heart Rate 2019-02-14 14:14:00 [facility] [place] Respitory Rate 2019-02-14 14:14:00 [facility] [place] Height 2019-02-14 14:14:00 162.56 cm [facility] [place] Weight 2019-02-14 14:14:00 [facility] [place] BMI Calculated 2019-02-14 14:14:00 [facility] [place] Height 2018-12-13 14:22:00 152.4 cm [facility] [place] Weight 2018-12-13 14:22:00 [facility] [place] BMI Calculated 2018-12-13 14:22:00 [facility] [place] Heart Rate 2018-12-13 14:22:00 [facility] [place] Respitory Rate 2018-12-13 14:22:00 [facility] [place] Systolic (mm Hg) 2018-12-13 14:22:00 Praful rial [place] Diastolic (mm Hg) 2018-12-13 14:22:00 Mem o[facility] [place] BMI Calculated 2018-11-10 13:50:00 [facility] [place] Weight 2018-11-10 13:50:00 [facility] [place] Respitory Rate 2018-11-10 13:50:00 [facility] [place] Height 2018-11-10 13:50:00 162.56 cm [facility] [place] Systolic (mm Hg) 2018-11-10 13:50:00 Praful rial [place] Diastolic (mm Hg) 2018-11-10 13:50:00 Mem orial [place] Procedures Procedure Date / Time Performed Performing Clinician Dorina de jesus Bypass [facility] [place] Encounters Start End Encounter Admission Attending Care Care Encounter Source Date/Time Date/Time Type Type Clinicians Facility Department ID 2019-11-15 2019-11-15 Outpatient MARINA YeeSCHER MHMISCHER [id number] 09:45:00 09:45:00 Brock 08 Lex 2019-08-15 2019-08-15 Outpatient MARINA YeeSCHER MHMISCHER [id number] 09:45:00 23:59:59 Brock Lex 2019-05-16 2019-05-16 Outpatient MARINA YeeSCHILANA MARINELLIMISCHER [id number] 09:45:00 23:59:59 Brock 06 Lex 2019-02-14 2019-02-14 Outpatient MARINA YeeSCHER MHMISCHER [id number] 09:15:00 23:59:59 Brock 05 Lex 2018-12-13 2018-12-13 Outpatient ISIS YeeMISCHER MHMISCHER [id number] 09:00:00 23:59:59 Brock [facility] 2018-11-10 2018-11-10 Outpatient MARINA YeeSCHER ISISMISCHER [id number] 09:15:00 23:59:59 Brock 03 [facility] 2018-11-08 2018-11-08 Outpatient MARINA YeeSCHER MHMISCHER [id number] 16:00:00 23:59:59 Brock [facility] 2018-11-08 2018-11-08 Outpatient ISIS YeeMARQUISSCHER MHMISCHER [id number] 14:00:00 14:00:00 Brock 01 Lex Results Test [...] 09/03/2018 9:[address] THORAX W/CONT 2017-03-[id number] 15:28:00 [place], [place] [address]LMWEPECHML IMAGING REPORTPatient Name: FRANCOIS GRIJALVA ADate of Service: [id number]: 81 Sex: F Order #: [id number] Room: OPEDOB: 1935 X-Ray Number: [id number] Record Number: [id number] Hospital Number: [id number] Physician: AARON PCPOrdering Physician: ANNIE TORRE chest [...]
[2020-05-04 19:50] LABS: Basophils % 0.5 % (0-1.3); Hematocrit 41.4 % (36.0-45.0); MPV 10.8 fL (7.6-11.3); RBC Red Blood Cell Count 4.34 M/uL (3.86-4.86)
[2020-05-04 19:51] LABS: Protime INR 0.97
[2020-05-04 19:59] LABS: Potassium 3.2 mmol/L (3.5-5.1)
--- NOTE | 2020-05-04 20:42 | RAD REPORT ---
EXAM DESCRIPTION: CT - Head C Spine Cap Garrett Vásquez - 05/04/2020 8:19 pm CLINICAL HISTORY: Trauma, head and neck injury. Chest, abdomen and pelvis pain. fall COMPARISON: No comparisons TECHNIQUE: CT head without contrast. CT cervical spine without contrast with coronal and sagittal reformatted images. CT chest, abdomen and pelvis with IV contrast (approximately 100 mL nonionic IV contrast) with duke l and sagittal reformatted images of the spine. All CT scans are performed using dose optimization technique as appropriate and may include automated exposure control or mA/KV adjustment according to patient size. FINDINGS: CT HEAD WITHOUT CONTRAST: No intracranial hemorrhage, hydrocephalus or extra-axial fluid collection. Moderate generalized brain atrophy is present with moderate periventricular and deep white matter chronic microvascular ischemi c changes. No areas of brain edema or midline shift. The paranasal sinuses and mastoids are clear. The calvarium is intact. Left frontal scalp hematoma is noted. Vertebral arteries are atherosclerotic. CT CERVICAL SPINE WITHOUT CONTRAST: No fracture or subluxation. Mild upper cervical degenerative changes. The prevertebral soft tissues a re normal in thickness. CT CHEST, ABDOMEN, PELVIS WITH CONTRAST: Small left pleural effusion is seen. Aneurysmal dilatation of the thoracic aorta is seen at the level of the aortic arch measuring 5.2 cm and at the level of the diaphragm measuring 6.0 cm. No dissectio n.No pneumothorax or pericardial/pleural fluid. No evidence of intra-abdominal visceral injury, free fluid or free air. Aneurysm of the abdominal aor ta is present measuring 5 3 cm dimension. Sigmoid diverticulosis coli without diverticulitis. Large l eft renal cyst. No concerning pelvic findings. Mild central wedge compression deformity of the L1 vertebral body is seen with approximate 25% loss o f vertebral body height. This has the appearance of chronic fracture. IMPRESSION: Negative for acute traumatic findings. Multifocal aneurysmal dilatation of the aorta is identified as detailed.
[2020-05-04] MEDS ORDERED: ACETAMINOPHEN 325 MG TABLET ONE (20:59)
--- NOTE | 2020-05-04 21:31 | EDPHYS ---
Physician Documentation [facility] Name: Nilda Gracia Age: 85 yrs Sex: Female : 1935 Arrival Date: 05/04/2020 Time: 18:59 Bed 5 Private MD: ED Physician Sonny Mcdermott HPI: 05/04 19:02 This 85 yrs old Female presents to ER via Unassigned with complaints of Fall cp Injury. 19:02 Onset: The symptoms/episode began/occurred just prior to arrival. Associated injuries: cp The patient sustained injury to the head, hematoma. Historical: - Allergies: 19:00 PENICILLINS; aa5 - PMHx: 19:00 Dementia; Depression; Hypertension; aa5 - Immunization history:: Adult Immunizations unknown. - Immunization history: Last tetanus immunization: unknown. - Social history:: Smoking status: Patient/guardian denies using. ROS: 19:05 Constitutional: Negative for fever. cp 19:05 Neuro: Negative for altered mental status. cp 19:05 Unable to obtain ROS due to baseline dementia. Exam: 19:10 Constitutional: The patient appears in no acute distress, alert, awake, cp non-diaphoretic, non-toxic, well developed, frail. 19:10 Head/face: Noted is ecchymosis, that is mild, of the left forehead, hematoma, that is cp moderate, of the left forehead. 19:10 Eyes: Periorbital structures: appear normal, Pupils: equal, round, and reactive to light and accomodation, Conjunctiva: normal, no exudate, no injection, Lids and lashes: appear normal, bilaterally. 19:10 ENT: External ear(s): are unremarkable, Nose: is normal, Mouth: Lips: moist, Oral mucosa: moist, Posterior pharynx: Airway: no evidence of obstruction, patent. 19:10 Neck: C-spine: vertebral tenderness, that is mild, appreciated at C5 and C6, crepitus, is not appreciated. 19:10 Chest/axilla: Inspection: normal, Palpation: is normal, no crepitus, no tenderness. 19:10 Cardiovascular: Rate: normal, Rhythm: regular. 19:10 Respiratory: the patient does not display signs of respiratory distress, Respirations: normal, no use of accessory muscles, no retractions, labored breathing, is not present, Breath sounds: are clear throughout, no decreased breath sounds, no stridor, no wheezing. 19:10 Abdomen/GI: Inspection: abdomen appears normal, Palpation: abdomen is soft and non-tender, in all quadrants, rebound tenderness, is not appreciated, involuntary guarding, is not appreciated. 19:10 Neuro: Orientation: no acute changes, per EMS, Mentation: no acute changes, per EMS. Vital Signs: 18:59 BP 187 / 104; Pulse 71; Resp 18 S; Temp 98.0(O); Pulse Ox 97% on R/A; aa5 19:27 BP 185 / 90; Pulse 67; Resp 18; Pulse Ox 98% ; Weight 56.7 kg; Height 5 ft. 3 in. wh (160.02 cm); 19:34 BP 175 / 85; wh 21:00 BP 175 / 88; Pulse 65; Resp 18; Pulse Ox 97% on R/A; wh 22:15 BP 166 / 99; Pulse 67; Resp 18; Pulse Ox 98% on R/A; wh 19:27 Body Mass Index 22.14 (56.70 kg, 160.02 cm) [place] Coma Score: 19:17 Eye Response: spontaneous(4). Verbal Response: confused(4). Motor Response: obeys wh commands(6). Total: 14. Trauma Score (Adult): 19:17 Eye Response: spontaneous(1); Verbal Response: confused(1); Motor Response: obeys wh commands(2); Systolic BP: > 89 mm Hg(4); Respiratory Rate: 10 to 29 per min(4); Sadiq Score: 14; Trauma Score: 12 MDM: 19:03 Patient medically screened. cp 21:17 ED course: Discussed results of CT trauma gram with daughter. No acute traumatic cp findings noted. Discussed results showing enlarging multiple aortic aneurysms. Daughter does not want transfer for any interventions at this time and request transfer back to [facility]. 21:29 Data reviewed: vital signs, nurses notes, lab test result(s), radiologic studies, I cp have discussed the patient's presentation/case with the attending Emergency Department Physician; and as a result, I will discharge patient. 21:29 Differential diagnosis: closed head injury, contusion, fracture, laceration, multiple cp trauma. Counseling: I had a detailed discussion with the patient and/or guardian regarding: the historical points, exam findings, and any diagnostic results supporting the discharge/admit diagnosis, lab results, radiology results, to return to the emergency department if symptoms worsen or persist or if there are any questions or concerns that arise at home. 05/04 19:01 Order name: glucometer results - FOR PT WITH NO ID; Complete Time: 20:00 dh3 05/04 19:02 Order name: Basic Metabolic Panel; Complete Time: 20:00 05/04 20:01 Interpretation: Normal except: K 3.2; GLUC 140; GFR 48. 05/04 19: Order name: CBC with Diff; Complete Time: 20:00 05/04 19: Order name: Type And Screen; Complete Time: 20:45 05/04 19: Order name: PT-INR; Complete Time: 20:00 05/04 19:53 Order name: CREATININE WHOLE BLOOD; Complete Time: 20:00 EDMS 05/04 19:02 Order name: CT Traumagram (Head C Spine CAP W Con); Complete Time: 20:45 05/04 19:02 Order name: Labs collected and sent; Complete Time: 19:24 05/04 19:02 Order name: IV; Complete Time: 19:24 cp Administered Medications: 20:48 Drug: Tylenol 650 mg Route: PO; 21:18 Follow up: Response: No adverse reaction; Pain is decreased 21:52 Drug: Potassium Effervescent Tablet 50 mEq Route: PO; 22:17 Follow up: Response: No adverse reaction 22:33 Not Given (Hemodynamic Parameters): hydrALAZINE 5 mg IV at calculated rate once Disposition: 21:45 Chart complete. 05/05 06:04 Co-signature as Attending Physician, Sonny Mcdermott MD. [email or web address] Disposition: 05/04/20 21:30 Discharged to Home. Impression: Contusion of unspecified part of head - forehead, Thoracic aortic aneurysm, without rupture, Abdominal aortic aneurysm, without rupture. - Condition is Stable. - Discharge Instructions: Abdominal Aortic Aneurysm, Thoracic Aortic Aneurysm, Contusion, Head Injury, Adult, Hematoma. - Medication Reconciliation Form, Thank You Letter, Antibiotic Education, Prescription Opioid Use form. - Follow up: Private Physician; When: 1 - 2 days; Reason: Recheck today's complaints. - Problem is new. - Symptoms have improved. Signatures: Dispatcher [employer] EDMaddi Abdullahi RN RN aa5 Drake aGrcía PA PA cp Habalo, Winsy wh Holmes, Maurice, MD MD mh7 Corrections: (The following items were deleted from the chart) 05/04 22:33 21:30 05/04/2020 21:30 Discharged to Home. Impression: Contusion of unspecified part of head - forehead; Thoracic aortic aneurysm, without rupture; Abdominal aortic aneurysm, without rupture. Condition is Stable. Forms are Medication Reconciliation Form, Thank You Letter, Antibiotic Education, Prescription Opioid Use. Follow up: Private Physician; When: 1 - 2 days; Reason: Recheck today's complaints. Problem is new. Symptoms have improved. cp
--- NOTE | 2020-05-04 21:31 | ER ---
Nurse's Notes [facility] Name: Nilda Gracia Age: 85 yrs Sex: Female : 1935 Arrival Date: 05/04/2020 Time: 18:59 Bed 5 Private MD: Diagnosis: Contusion of unspecified part of head-forehead;Thoracic aortic aneurysm, without rupture;Abdominal aortic aneurysm, without rupture Presentation: 05/04 18:59 Chief complaint: EMS states: caregiver reported fall from bed, found lying down onto aa5 left side. Denies LOC. EMS also reports high blood pressure at 200/100. 18:59 Acuity: GIANFRANCO 2 aa5 18:59 Method Of Arrival: EMS: [facility] aa5 18:59 Coronavirus screen: Client denies travel out of the [place] in the last 14 days. At this aa5 time, the client does not indicate any symptoms associated with coronavirus-19. Ebola Screen: Patient negative for fever greater than or equal to 101.5 degrees Fahrenheit, and additional compatible Ebola Virus Disease symptoms. Initial Sepsis Screen: Does the patient meet any 2 criteria? No. Patient's initial sepsis screen is negative. Does the patient have a suspected source of infection? No. Patient's initial sepsis screen is negative. Risk Assessment: Do you want to hurt yourself or someone else? Patient reports no desire to harm self or others. Onset of symptoms was May 04, 2020. 19:17 Care prior to arrival: None. Mechanism of Injury: Fall. Trauma event details: Injury wh occurred in the [facility]. Trauma Activation: Alert Physician: ED Physician; Name: ; Notified At: ; Arrived At: Physician: General Surgeon; Name: ; Notified At: ; Arrived At: Physician: Radiology; Name: ; Notified At: ; Arrived At: Physician: Respiratory; Name: ; Notified At: ; Arrived At: Physician: Lab; Name: ; Notified At: ; Arrived At: Historical: - Allergies: 19:00 PENICILLINS; aa5 - PMHx: 19:00 Dementia; Depression; Hypertension; aa5 - Immunization history:: Adult Immunizations unknown. - Immunization history: Last tetanus immunization: unknown. - Social history:: Smoking status: Patient/guardian denies using. Screenin:16 Abuse screen: Denies threats or abuse. Denies injuries from another. Nutritional wh screening: No deficits noted. Tuberculosis screening: No symptoms or risk factors identified. Fall Risk Fall in past 12 months (25 points). Secondary diagnosis (15 points) Alzheimer's, dementia. Primary Survey: 19:16 NO uncontrolled hemorrhage observed. A: The patient is alert. Airway: patent. wh Breathing/Chest: Respiratory pattern: regular, Respiratory effort: spontaneous, unlabored. Circulation: Skin color: pink, Skin temperature: warm. Disability Alert. Exposure/Environment: All clothing and personal items were removed. Forensic evidence collection is not deemed to be indicated at this time. Items placed in patient belonging bag. There is no evidence of uncontrolled external bleeding. Obvious injury(ies) are noted at this time: knot on left forehead. 20:30 Reassessment Airway Airway Patent Breathing/Chest Respiratory pattern Regular wh Respiratory effort Spontaneous Unlabored Circulation Color [place] Disability Alert. Assessment: 19:18 General: Appears in no apparent distress. Behavior is cooperative. Pain: Complains of wh pain in forehead. Neuro: Level of Consciousness is awake, alert, obeys commands, Oriented to person, place. Cardiovascular: Capillary refill < 3 seconds. Respiratory: Airway is patent Respiratory effort is even, unlabored, Respiratory pattern is regular, symmetrical. GI: Abdomen is flat, non-distended. : No signs and/or symptoms were reported regarding the genitourinary system. EENT: No signs and/or symptoms were reported regarding the EENT system. Derm: Skin is intact. Musculoskeletal: Circulation, motion, and sensation intact. Injury Description: Head injury sustained to forehead. 20:48 Reassessment: Spoke with Shanae from [facility] about patient disposition; Reported lp1 that results are pending at this time. 21:00 Reassessment: Patient appears in no apparent distress at this time. Patient and/or wh family updated on plan of care and expected duration. Pain level reassessed. 21:45 Reassessment: Patient appears in no apparent distress at this time. Patient and/or wh family updated on plan of care and expected duration. Pain level reassessed. Pt with DC order, Pet bed bound facilitating transport, notified [facility] Charge NUrse, maintenance and operations supervisor instructed to call EMS for transport. 22:25 Reassessment: Patient appears in no apparent distress at this time. Patient and/or wh family updated on plan of care and expected duration. Pain level reassessed. Report given to Asia Downs RN. Vital Signs: 18:59 BP 187 / 104; Pulse 71; Resp 18 S; Temp 98.0(O); Pulse Ox 97% on R/A; aa5 19:27 BP 185 / 90; Pulse 67; Resp 18; Pulse Ox 98% ; Weight 56.7 kg; Height 5 ft. 3 in. wh (160.02 cm); 19:34 BP 175 / 85; wh 21:00 BP 175 / 88; Pulse 65; Resp 18; Pulse Ox 97% on R/A; wh 22:15 BP 166 / 99; Pulse 67; Resp 18; Pulse Ox 98% on R/A; wh 19:27 Body Mass Index 22.14 (56.70 kg, 160.02 cm) Sadiq Coma Score: 19:17 Eye Response: spontaneous(4). Verbal Response: confused(4). Motor Response: obeys commands(6). Total: 14. Trauma Score (Adult): 19:17 Eye Response: spontaneous(1); Verbal Response: confused(1); Motor Response: obeys commands(2); Systolic BP: > 89 mm Hg(4); Respiratory Rate: 10 to 29 per min(4); Sadiq Score: 14; Trauma Score: 12 ED Course: 18:59 Patient arrived in ED. aa5 18:59 Drake García PA is PHCP. cp 18:59 Eyal Kessler MD is Attending Physician. cp 18:59 Arm band placed on. aa5 19:02 Triage completed. aa5 19:03 Chalino Villa is Primary Nurse. 19:05 Sonny Mcdermott MD is Attending Physician. cp 19:19 Patient has correct armband on for positive identification. Placed in gown. Bed in low wh position. Call light in reach. Side rails up X 1. Pulse ox on. NIBP on. 19:19 Thermoregulation: warm blanket given to patient. wh 19:20 Patient maintains SpO2 saturation greater than 95% on room air. wh 19:32 Inserted saline lock: 20 gauge in left antecubital area, using aseptic technique. Blood oe collected. 20:20 CT Traumagram (Head C Spine CAP W Con) In Process Unspecified. EDMS 22:30 No provider procedures requiring assistance completed. IV discontinued, intact, bleeding controlled, No redness/swelling at site. Administered Medications: 20:48 Drug: Tylenol 650 mg Route: PO; 21:18 Follow up: Response: No adverse reaction; Pain is decreased 21:52 Drug: Potassium Effervescent Tablet 50 mEq Route: PO; 22:17 Follow up: Response: No adverse reaction 22:33 Not Given (Hemodynamic Parameters): hydrALAZINE 5 mg IV at calculated rate once Intake: 22:32 PO: 120ml (Juice); Total: 120ml. Outcome: 21:30 Discharge ordered by . cp 22:31 Discharged to alf. Report called to Asia Downs RN 22:31 Condition: stable 22:31 Discharge instructions given to alf, Instructed on discharge instructions, follow up and referral plans. Demonstrated understanding of instructions, follow-up care. 22:32 Patient's length of stay in the Emergency Department was greater than 2 hours. awaiting transportPatient's length of stay extended due to 22:33 Patient left the ED. Signatures: Dispatcher [employer] EDMS Maddi Baxter RN RN aa5 Esme Begum RN RN lp1 Drake García PA PA Lenny Kevin Winsy Corrections: (The following items were deleted from the chart) 19:04 18:59 Chief complaint: EMS states: caregiver reported fall from bed, found lying down aa5 onto left side. Denies LOC. aa5
[2020-05-04] MEDS ORDERED: POTASSIUM 25 MEQ EFFERV TAB ONE (22:02)
[2020-05-05 03:13] VITALS: TEMP 98
[2020-05-05 03:20] VITALS: BP 166/99; O2SAT 98
== END 2020-05-04 22:33 | disposition home or self-care (01) ==
LOC: ER 18:58
DX: S00.83XA Contusion of other part of head, initial encounter (principal); I71.2 Thoracic aortic aneurysm, without rupture; I71.4 Abdominal aortic aneurysm, without rupture; W06.XXXA Fall from bed, initial encounter; Y93.9 Activity, unspecified; Y92.89 Other specified places as the place of occurrence of the external cause; I10 Essential (primary) hypertension; F03.90 Unspecified dementia, unspecified severity, without behavioral disturbance, psychotic disturbance, mood disturbance, and anxiety; Z88.0 Allergy status to penicillin
CPT/HCPCS: 85025; 80048; 36415; 86900; 86850; 85610; 82565; 86901; 82947; 70450; 72125; 71260; 74177; 99284; Q9967; G0390

== ENCOUNTER 2020-10-18 18:24 | Inpatient (IN) | payer OTHER, BC ==
--- OUTSIDE RECORDS SUMMARY | 2020-10-18 18:26 | XMS REPORT | Continuity of Care Document ---
:1935 Author Organization [facility] t Address [address] [place] [address] Care Team Providers Name Role Phone Lex [...] Sherly nn impairment (finding) [facility], Adverse Reactions, Alerts This patient [...] HR 2019- Yes 500 mg = 1 Memori a Divalproex 2-26 tab, PO, l Sodium 500 21:36: Bedtime, # Tad gastelumann MG Extended 01 90 tab, 3 Release Refill(s), Tablet Pharmacy: [Depakote] [facility] cy #[id number] 24 HR 2018-06 No 500 mg = 1 Memori a Divalproex 2-26 tab, PO, l Sodium 500 21:34: Bedtime, X H ermann MG Extended 16 90 day, # Release 90 tab, 3 Tablet Refill(s), [Depakote] Pharmacy: [facility]/pharma cy #[id number] Memantine 2018-06 Yes 10 mg = 1 Mem oria hydrochlori 2-04 tab, PO, l de 10 MG 16:04: BID, # 60 Herm rosi Oral Tablet 24 tab, 3 [Namenda] Refill(s), Pharmacy: [facility] cy #[id number] QUEtiapine 2018-06 Yes 25 mg, PO, M emoria 25 mg oral 2-04 PRN, PRN l tablet 16:04: Agitation, Sherly nn 10 # 30 tab, 2 Refill(s), Pharmacy: [facility] #[id number] donepezil 2018-06 Yes 10 mg = 1 Mem oria 10 mg oral 2-04 tab, PO, l tablet 16:01: Bedtime, # Sherly nn 28 30 tab, 3 Refill(s), Pharmacy: [facility] #[id number] 24 HR 2018-06 Yes 500 [...] Tablet 00 tab, 3 [Namenda] Refill(s), Pharmacy: [facility] #[id number] donepezil 2019- Yes 10 mg = 1 Mem oria 10 mg oral 9-04 tab, PO, l tablet 14:29: Bedtime, # Sherly nn 56 30 tab, 3 Refill(s), Pharmacy: [facility] #[id number] QUEtiapine 2019- Yes 25 mg, PO, M emoria 25 mg oral 7-03 PRN, PRN l tablet 14:35: Agitation, Sherly nn 00 # 30 tab, 2 Refill(s), Pharmacy: [facility] #[id number] donepezil 2019-0 Yes 10 mg = 1 Mem oria 10 mg oral 5-31 tab, PO, l tablet 15:03: Bedtime, # Sherly nn 00 30 tab, 3 Refill(s), Pharmacy: [facility] #[id number] Memantine 2019-0 Yes 10 mg = 1 Mem oria hydrochlori 5-31 tab, PO, l de 10 MG 15:03: BID, # 60 Herm rosi Oral Tablet 00 tab, 3 [Namenda] Refill(s), Pharmacy: [facility] #[id number] metoprolol 2019-0 Yes 50 mg = [...] Systolic (mm Hg) 2019-08-15 15:32:00 [facility] [place] Diastolic (mm Hg) 2019-08-15 15:32:00 [facility] [place] Heart Rate 2019-08-15 15:32:00 [facility] [place] Respitory Rate 2019-08-15 15:32:00 [facility] [place] Height 2019-08-15 15:32:00 157.48 cm [facility] [place] Weight 2019-08-15 15:32:00 [facility] [place] BMI Calculated 2019-08-15 15:32:00 [facility] [place] Systolic (mm Hg) 2019-05-16 15:10:00 [facility] [place] Diastolic (mm Hg) 2019-05-16 15:10:00 [facility] [place] Heart Rate 2019-05-16 15:10:00 [facility] [place] Respitory Rate 2019-05-16 15:10:00 [facility] [place] Height 2019-05-16 15:10:00 162.56 cm [facility] [place] Weight 2019-05-16 15:10:00 [facility] [place] BMI Calculated 2019-05-16 15:10:00 [facility] [place] Systolic (mm Hg) 2019-02-14 14:14:00 [facility] [place] Diastolic (mm Hg) 2019-02-14 14:14:00 [facility] [place] Heart Rate 2019-02-14 14:14:00 [facility] [place] Respitory Rate 2019-02-14 14:14:00 [facility] [place] Height 2019-02-14 14:14:00 162.56 cm [facility] [place] Weight 2019-02-14 14:14:00 [facility] [place] BMI Calculated 2019-02-14 14:14:00 [facility] [place] Height 2018-12-13 14:22:00 152.4 cm [facility] [place] Weight 2018-12-13 14:22:00 [facility] [place] BMI Calculated 2018-12-13 14:22:00 [facility] [place] Heart Rate 2018-12-13 14:22:00 [facility] [place] Respitory Rate 2018-12-13 14:22:00 [facility] [place] Systolic (mm Hg) 2018-12-13 14:22:00 [facility] [place] Diastolic (mm Hg) 2018-12-13 14:22:00 [facility] [place] BMI Calculated 2018-11-10 13:50:00 [facility] [place] Weight 2018-11-10 13:50:00 [facility] [place] Respitory Rate 2018-11-10 13:50:00 [facility] [place] Height 2018-11-10 13:50:00 162.56 cm [facility] [place] Systolic (mm Hg) 2018-11-10 13:50:00 [facility] riajoyce [place] Diastolic (mm Hg) 2018-11-10 13:50:00 [facility] [place] Procedures Procedure Date / Time Performed Performing Clinician Dorina de jesus Bypass [facility] [place] Encounters Start End Encounter Admission Attending Care Care Encounter Source Date/Time Date/Time Type Type Clinicians Facility Department ID 2019-11-15 2019-11-15 Outpatient MARINA YeeSCHER MHMISCHER [id number] 09:45:00 09:45:00 Brock 08 Lex 2019-08-15 2019-08-15 Outpatient ISIS YeeMISCHER MHMISCHER [id number] 09:45:00 23:59:59 Brock Lex 2019-05-16 2019-05-16 Outpatient MARINA YeeSCHER ISISMISCHER [id number] 09:45:00 23:59:59 Brock 06 Lex 2019-02-14 2019-02-14 Outpatient MARINA YeeSCHER MHMISCHER [id number] 09:15:00 23:59:59 Brock 05 Lex 2018-12-13 2018-12-13 Outpatient ISIS YeeMISCHER MHMISCHER [id number] 09:00:00 23:59:59 Brock [facility] 2018-11-10 2018-11-10 Outpatient MARINA YeeSCHER ISISMISCHER [id number] 09:15:00 23:59:59 Brock 03 [facility] 2018-11-08 2018-11-08 Outpatient MARINA YeeSCHER MHMISCHER [id number] 16:00:00 23:59:59 Brock [facility] 2018-11-08 2018-11-08 Outpatient ISIS YeeMARQUISSCHER MHMISCHER [id number] 14:00:00 14:00:00 Brock 01 Lex Results Test [...] XR Pelvis 1 or 2 2018-08-12 Patient: VALENTINEJaylan 4 FRANCOIS A 09:41:46 Date/Time09/03/2018 09:26 CDTReason [...] DT/TM: 09/03/2018 9:38 amSigned by: MD Carlos, SameShaliniigned (Electronic Signature): 09/03/2018 9:41 am XR Hip [...] Tomigned (Electronic Signature): 09/03/2018 9:41 am XR Chest [...] 09/03/2018 9:[address] THORAX W/CONT 2017-03-[id number] 15:28:00 [place], [place] [address]UR[facility] IMAGING REPORTPatient Name: FRANCOIS GRIJALVA ADate of Service: [id number]: [id number] Sex: F Order #: [id number] Room: OPEDOB: 1935 X-Ray Number: [id number] Record Number: [id number] Hospital Number: [id number] Physician: AARON PCPOrdering Physician: ANNIE TORRE chest [...]
[2020-10-18] MEDS ORDERED: NA CHLORIDE 0.9% 1,000 ML ONE (20:06)
[2020-10-18] MEDS ORDERED: CEFTRIAXONE/SWI 1gm 1 GM/10 ML SYR ONE (20:06)
--- NOTE | 2020-10-18 20:25 | RAD REPORT ---
EXAM DESCRIPTION: RAD - Chest Single View - 10/18/2020 8:18 pm CLINICAL HISTORY: COUGH Chest pain. FINDINGS: Portable technique limits examination quality. The lungs are grossly clear. The heart is enlarged with a tortuous and ectatic thoracic aorta, simila r to prior study. No displaced fractures.Sternotomy wires present.
[2020-10-18 20:53] LABS: Absolute Lymphocytes (CBC) 1.6 K/uL (0.7-4.9); Basophils % 0.6 % (0-1.3); Hematocrit 35.4 % (36.0-45.0); Lymphocytes % 18.2 % (15.3-44.8); MPV 10.3 fL (7.6-11.3); RBC Red Blood Cell Count 3.68 M/uL (3.86-4.86)
[2020-10-18 21:13] LABS: Albumin 2.6 g/dL (3.4-5.0); Bilirubin Direct 0.2 mg/dL (0-0.2); Bilirubin Total 0.8 mg/dL (0.2-1.0); Potassium 3.9 mmol/L (3.5-5.1); Protein, Total 6.6 g/dL (6.4-8.2); Troponin (Emerg Dept Use Only) 0.05 ng/mL (0.0-0.045)
--- NOTE | 2020-10-18 22:06 | EDPHYS ---
Physician Documentation [facility] Name: Nilda Gracia Age: 85 yrs Sex: Female : 1935 Arrival Date: 10/18/2020 Time: 18:29 Bed 8 Private MD: ED Physician Lew Ramsay HPI: 10/18 20:45 This 85 yrs old Female presents to ER via EMS with complaints of General tw4 Weakness. 20:45 The patient presents with decreased mental status, decreased responsiveness. Onset: The tw4 symptoms/episode began/occurred 1 week(s) ago. Possible causes: unknown. Associated signs and symptoms: The patient has no apparent associated signs or symptoms. Current symptoms: In the emergency department the patient's symptoms are unchanged from the initial presentation. Patient's baseline: Neuro: alert but confused, Motor: no deficits, Ambulation: unable to walk, Speech: normal for age. The patient has experienced similar episodes in the past, a few times. Historical: - Allergies: 18:33 PENICILLINS; sv - PMHx: 18:33 Dementia; Depression; Hypertension; sv - Immunization history:: Adult Immunizations up to date. - Social history:: Smoking status: Patient denies any tobacco usage or history of. ROS: 20:45 Unable to obtain ROS due to baseline dementia. tw4 Exam: 20:45 Head/Face: Normocephalic, atraumatic. Eyes: Pupils equal round and reactive to light, tw4 extra-ocular motions intact. Lids and lashes normal. Conjunctiva and sclera are non-icteric and not injected. Cornea within normal limits. Periorbital areas with no swelling, redness, or edema. Chest/axilla: Normal chest wall appearance and motion. Nontender with no deformity. No lesions are appreciated. Cardiovascular: Regular rate and rhythm with a normal S1 and S2. No gallops, murmurs, or rubs. Normal PMI, no JVD. No pulse deficits. Respiratory: Lungs have equal breath sounds bilaterally, clear to auscultation and percussion. No rales, rhonchi or wheezes noted. No increased work of breathing, no retractions or nasal flaring. Abdomen/GI: Soft, non-tender, with normal bowel sounds. No distension or tympany. No guarding or rebound. No evidence of tenderness throughout. Back: No spinal tenderness. No costovertebral tenderness. Full range of motion. MS/ Extremity: Pulses equal, no cyanosis. Neurovascular intact. Full, normal range of motion. Neuro: Awake and alert, GCS 15, oriented to person, place, time, and situation. Cranial nerves II-XII grossly intact. Motor strength 5/5 in all extremities. Sensory grossly intact. Cerebellar exam normal. Normal gait. 20:45 Constitutional: The patient appears contracted, emaciated, frail, lethargic. Vital Signs: 18:29 BP 147 / 93; Pulse 80; Resp 18; Temp 97.1(A); Pulse Ox 95% ; Pain 0/10; sv 20:11 BP 158 / 96; Pulse 70; Resp 16 S; Pulse Ox 99% on R/A; ad5 21:20 BP 155 / 92; Pulse 73; Resp 17 S; Pulse Ox 100% on R/A; ad5 22:00 BP 166 / 102; Pulse 77; Resp 18 S; Pulse Ox 98% on R/A; Pain 0/10; ad5 23:48 BP 176 / 92; Pulse 66; Resp 18 S; Pulse Ox 94% on R/A; Pain 0/10; ad5 05/ 00:41 BP 174 / 93; Pulse 70; Resp 18; Pulse Ox 98% ; ea 01:25 BP 168 / 90; Pulse 82; Resp 18; Pulse Ox 98% on R/A; ea 01:27 BP 168 / 90; Pulse 81; Resp 17 S; Pulse Ox 99% on R/A; Pain 0/10; ad5 MDM: 10/18 19:36 Patient medically screened. moises 22:06 Differential Diagnosis: CVA, electrolyte abnormality, intracranial bleed, meningitis. tw4 Data reviewed: vital signs, nurses notes. Data interpreted: Pulse oximetry: Interpretation: normal. Test interpretation: by ED physician or midlevel provider: ECG, plain radiologic studies. Counseling: I had a detailed discussion with the patient and/or guardian regarding: the historical points, exam findings, and any diagnostic results supporting the discharge/admit diagnosis, lab results, radiology results. 10/18 19:40 Order name: Basic Metabolic Panel [facility] 10/18 19:40 Order name: CBC with Diff [facility] 10/18 19:40 Order name: LFT's [facility] 10/18 19:40 Order name: Magnesium [facility] 10/18 19:40 Order name: NT PRO-BNP [facility] 10/18 19:40 Order name: PT-INR [facility] 10/18 19:40 Order name: Troponin (emerg Dept Use Only) [facility] 10/18 19:40 Order name: Lipase [facility] 10/18 19:40 Order name: Blood Culture Adult (2) [facility] 10/18 19:40 Order name: Lactate [facility] 10/18 19:40 Order name: Urine Culture [facility] 10/18 19:40 Order name: Basic Metabolic Panel; Complete Time: 21:43 EDSD 10/18 21:43 Interpretation: Normal except: NA 146; CL 113; GFR 76. rust 10/18 19:40 Order name: CBC with Automated Diff; Complete Time: 21:43 EDSD 10/18 21:43 Interpretation: Normal except: RBC 3.68; HGB 11.9; HCT 35.4; PLT 106. rust 10/18 19:40 Order name: XRAY Chest (1 view); Complete Time: 20:[address] [facility] 10/18 19:40 Order name: EKG; Complete Time: 19:[address] [facility] 10/18 19:40 Order name: Liver (Hepatic) Function; Complete Time: 21:43 EDSD 10/18 21:43 Interpretation: Normal except: AST 10; ALT 7; ALB 2.6; GLOB 4.0; A/G 0.7. rust 10/18 19:40 Order name: Magnesium; Complete Time: 21:43 [facility] 10/18 21:44 Interpretation: Within normal limits: MG 2.0. rust 10/18 19:40 Order name: NT PRO-BNP; Complete Time: 21:43 [facility] 10/18 21:43 Interpretation: Abnormal: NT PRO-BNP 4228. rust 10/18 19:40 Order name: Protime (+INR) [facility] 10/18 19:40 Order name: Troponin (Emerg Dept Use Only); Complete Time: 21:43 EDSD 10/18 21:44 Interpretation: Normal except: TROPED 0.05. rust 10/18 19:40 Order name: Lipase; Complete Time: 21:43 EDSD 10/18 21:44 Interpretation: Normal except: LIP 26. rust 10/18 20:20 Order name: Glucose, Ancillary Testing [facility] 10/18 21:15 Order name: SARS-COV-2 RT PCR; Complete Time: 21:43 [facility] 10/18 21:44 Interpretation: Within normal limits: SARSCOV2 RT PCR NEGATIVE. tw4 10/18 22:24 Order name: CT Head Brain wo Cont tw4 10/18 22:25 Order name: Urine Dipstick-Ancillary; Complete Time: 23:59 [facility] 10/18 23:59 Interpretation: Normal except: UESTR 3+; U NIT Positive; UPROT Trace; UBLD 2+; UKET 1+. tw4 10/19 01:22 Order name: Urine Drug Screen [facility] 10/18 19:40 Order name: Cardiac monitoring; Complete Time: 21:[address] [facility] 10/18 19:40 Order name: EKG - Nurse/Tech; Complete Time: 21:[address] [facility] 10/18 19:40 Order name: IV Saline Lock; Complete Time: 21:[address] [facility] 10/18 19:40 Order name: Labs collected and sent; Complete Time: 21:[address] [facility] 10/18 19:40 Order name: O2 Per Protocol; Complete Time: 21:[address] [facility] 10/18 19:40 Order name: O2 Sat Monitoring; Complete Time: 21:[address] [facility] 10/18 19:40 Order name: Urine Dipstick-Ancillary (obtain specimen); Complete Time: 22:[address] [facility] 10/18 19:40 Order name: Blood Glucose Level; Complete Time: 21:[address] [facility] EC:54 Rate is 75 beats/min. Rhythm is regular. QRS [place] is Normal. PA interval is normal. QRS tw4 interval is normal. QT interval is normal. No Q waves. T waves are Normal. T waves are Inverted in leads V3, V4, V5, V6. Clinical impression: Abnormal EKG without significant change. Interpreted by me. Reviewed by me. Administered Medications: 20:11 Drug: NS 0.9% 1000 ml Route: IV; Rate: 125 ml/hr; Site: left jugular; ad5 10/19 01:29 Follow up: IV Status: Completed infusion; IV Intake: 1000ml ad5 10/18 20:12 Drug: NS 0.9% 500 ml Route: IV; Rate: bolus; Site: left jugular; ad5 20:37 Follow up: IV Status: Completed infusion; IV Intake: 500ml ad5 20:12 Drug: Rocephin (cefTRIAXone) 1 grams Route: IV; Rate: per protocol; Site: left jugular; ad5 20:45 Follow up: IV Status: Completed infusion; IV Intake: 10ml ad5 10/19 01:30 Follow up: IV Status: Completed infusion ad5 Disposition: 10/18/20 22:05 Hospitalization ordered by Horace Herrera for Inpatient Admission. Preliminary diagnosis are Altered mental status, unspecified, Adult failure to thrive, Dehydration. - Bed requested for Telemetry/MedSurg (Inpatient). - Status is Inpatient Admission. ea - Condition is Fair. - Problem is new. - Symptoms are unchanged. Signatures: Dispatcher [employer] EDSD Liida Posey, RN Drake Brown MD MD cha Antunez, Elena, RN RN ea Wadley, Terrence, MD MD tw4 Jud Reyes mw2 Pepito Moulton ad5 Corrections: (The following items were deleted from the chart) 10/18 20:33 19:40 CORONAVIRUS+MR.LAB.BRZ ordered. [facility] 10/19 01:22 10/18 22:05 Hospitalization Ordered by Horace Herrera for Inpatient Admission. mw2 Preliminary diagnosis is Altered mental status, unspecified; Adult failure to thrive; Dehydration. Bed requested for Telemetry/MedSurg (Inpatient). Status is Inpatient Admission. Condition is Fair. Problem is new. Symptoms are unchanged. tw4 10/19 01:41 01:22 10/18/2020 22:05 Hospitalization Ordered by Horace Herrera for Inpatient ea Admission. Preliminary diagnosis is Altered mental status, unspecified; Adult failure to thrive; Dehydration. Bed requested for Telemetry/MedSurg (Inpatient). Status is Inpatient Admission. Condition is Fair. Problem is new. Symptoms are unchanged. mw2
--- NOTE | 2020-10-18 22:06 | ER ---
Nurse's Notes [facility] Name: Nilda Gracia Age: 85 yrs Sex: Female : 1935 Arrival Date: 10/18/2020 Time: 18:29 Bed 8 Private MD: Diagnosis: Altered mental status, unspecified;Adult failure to thrive;Dehydration Presentation: 10/18 18:29 Chief complaint: EMS states: called out by daughter who stated that she has been sv visiting her for weeks and now has generalized weakness and not eating. She revoke her Hospice and wanted her brought to the ER. Vitals WNL, BS-96. Staff at [facility] stated that the daughter has not seen her mother in weeks. Pt is end stage Alzheimer's. Coronavirus screen: Client denies travel out of the [place] in the last 14 days. At this time, the client does not indicate any symptoms associated with coronavirus-19. Ebola Screen: No symptoms or risks identified at this time. Initial Sepsis Screen: Does the patient meet any 2 criteria? No. Patient's initial sepsis screen is negative. Does the patient have a suspected source of infection? No. Patient's initial sepsis screen is negative. Risk Assessment: Do you want to hurt yourself or someone else? Patient reports no desire to harm self or others. Onset of symptoms is unknown. 18:29 Method Of Arrival: EMS: [facility] sv 18:29 Acuity: GIANFRANCO 3 sv Triage Assessment: 18:29 General: Appears in no apparent distress. comfortable, slender, well nourished, sv Behavior is cooperative, quiet. Pain: Unable to use pain scale. FLACC scale score is 0 out of 10. Neuro: Level of Consciousness is lethargic, but opens eyes when spoken to. Cardiovascular: Rhythm is sinus rhythm. Respiratory: Airway is patent Respiratory effort is even, unlabored, Respiratory pattern is regular, symmetrical. Derm: Skin is pale. Historical: - Allergies: 18:33 PENICILLINS; sv - PMHx: 18:33 Dementia; Depression; Hypertension; sv - Immunization history:: Adult Immunizations up to date. - Social history:: Smoking status: Patient denies any tobacco usage or history of. Screenin:31 Abuse screen: Denies threats or abuse. Denies injuries from another. Nutritional sv screening: No deficits noted. Tuberculosis screening: No symptoms or risk factors identified. Fall Risk No fall in past 12 months (0 pts). Secondary diagnosis (15 points) Alzheimer's, No IV (0 pts). Ambulatory Aid- None/Bed Rest/Nurse Assist (0 pts). Gait- Normal/Bed Rest/Wheelchair (0 pts) Mental Status- Overestimates/Forgets Limitations (15 pts.). Total Jung Fall Scale indicates Low Risk Score (25-44 pts). Fall prevention measures have been instituted. Side Rails Up X 2 Frequent Obs/Assesments occuring As available Patient and Family Educated on Fall Prevention Program and strategies. Assessment: 20:37 General: Appears malnourished, Behavior is calm, cooperative, drowsy. Pain: Denies ad5 pain. Neuro: Level of Consciousness is lethargic, Oriented to person, hx of Alzheimer's, pt oriented to person. Truant Officer are weak bilaterally Weakness Speech pt with slowed, but clear speech. Facial symmetry appears normal, Pupils are PERRLA, Intact Cardiovascular: Heart tones S1 S2 Capillary refill < 3 seconds Clubbing of nail beds is absent JVD is absent Patient's skin is warm and dry. Pulses are all present. Edema is absent. Rhythm is regular Chest pain is denied. Respiratory: No deficits noted. Airway is patent Trachea midline Respiratory effort is even, unlabored, Respiratory pattern is regular, symmetrical, Breath sounds are clear bilaterally. GI: No deficits noted. Abdomen is flat, Bowel sounds present X 4 quads. Abd is soft and non tender X 4 quads. : Parent/caregiver report the patient having incontinence hx of incontinence at baseline. EENT: No deficits noted. Derm: No deficits noted. Skin is pink, warm \T\ dry. Musculoskeletal: Capillary refill < 3 seconds, Range of motion: limited in all extremities, generalized weakness. 21:20 Reassessment: Patient appears in no apparent distress at this time. No changes from ad5 previously documented assessment. Patient and/or family updated on plan of care and expected duration. Pain level reassessed. Patient is alert, oriented x 3, equal unlabored respirations, skin warm/dry/pink. Patient denies pain at this time. Family remains at bedside. 22:30 Reassessment: Patient appears in no apparent distress at this time. No changes from ad5 previously documented assessment. Patient and/or family updated on plan of care and expected duration. Pain level reassessed. Patient is alert, oriented x 3, equal unlabored respirations, skin warm/dry/pink. Straight cath performed for urine specimen per MD GERARD, pt tolerated well. Family remains at bedside. 23:47 Reassessment: Patient appears in no apparent distress at this time. No changes from ad5 previously documented assessment. Patient and/or family updated on plan of care and expected duration. Pain level reassessed. Patient is alert, oriented x 3, equal unlabored respirations, skin warm/dry/pink. Family remains at bedside. Denies needs or c/o at this time. VS remain stable. Will continue to monitor. 10/19 00:50 Reassessment: Patient appears in no apparent distress at this time. No changes from ad5 previously documented assessment. Patient and/or family updated on plan of care and expected duration. Pain level reassessed. Patient is alert, oriented x 3, equal unlabored respirations, skin warm/dry/pink. Family at bedside. Pt resting comfortably in stretcher, resp with ease. VS remain stable. NAD noted, will continue to monitor. Vital Signs: 10/18 18:29 BP 147 / 93; Pulse 80; Resp 18; Temp 97.1(A); Pulse Ox 95% ; Pain 0/10; sv 20:11 BP 158 / 96; Pulse 70; Resp 16 S; Pulse Ox 99% on R/A; ad5 21:20 BP 155 / 92; Pulse 73; Resp 17 S; Pulse Ox 100% on R/A; ad5 22:00 BP 166 / 102; Pulse 77; Resp 18 S; Pulse Ox 98% on R/A; Pain 0/10; ad5 23:48 BP 176 / 92; Pulse 66; Resp 18 S; Pulse Ox 94% on R/A; Pain 0/10; ad5 10/19 00:41 BP 174 / 93; Pulse 70; Resp 18; Pulse Ox 98% ; ea 01:25 BP 168 / 90; Pulse 82; Resp 18; Pulse Ox 98% on R/A; ea 01:27 BP 168 / 90; Pulse 81; Resp 17 S; Pulse Ox 99% on R/A; Pain 0/10; ad5 ED Course: 10/18 18:29 Patient arrived in ED. sv 18:29 Lidia Posey, RN is Primary Nurse. sv 18:31 Triage completed. sv 18:31 Arm band placed on. sv 18:32 Patient has correct armband on for positive identification. Placed in gown. Bed in low sv position. Call light in reach. Side rails up X2. vehicle monitor technician on. Pulse ox on. NIBP on. Door closed. Warm blanket given. Head of bed elevated. 19:06 Primary Nurse role handed off by Lidia Posey RN sv 19:06 Report given to Peggy MACIEL. sv 19:36 Drake Syed MD is Attending Physician. moises 19:41 Pepito Moulton is Primary Nurse. ad5 20:[address] Syed, pt tolerated well. Inserted saline lock: 18 gauge in left ad5 EJ, using aseptic technique. 20:18 XRAY Chest (1 view) In Process Unspecified. EDMS 20:28 Lew Ramsay MD is Attending Physician. tw4 22:05 Horace Herrera is Hospitalizing Provider. tw4 22:46 Urine Culture Sent. ad5 23:45 CT Head Brain wo Cont In Process Unspecified. EDMS 10/19 00:43 Patient admitted, IV remains in place. ea Administered Medications: 10/18 20:11 Drug: NS 0.9% 1000 ml Route: IV; Rate: 125 ml/hr; Site: left jugular; ad5 10/19 01:29 Follow up: IV Status: Completed infusion; IV Intake: 1000ml ad5 10/18 20:12 Drug: NS 0.9% 500 ml Route: IV; Rate: bolus; Site: left jugular; ad5 20:37 Follow up: IV Status: Completed infusion; IV Intake: 500ml ad5 20:12 Drug: Rocephin (cefTRIAXone) 1 grams Route: IV; Rate: per protocol; Site: left jugular; ad5 20:45 Follow up: IV Status: Completed infusion; IV Intake: 10ml ad5 10/19 01:30 Follow up: IV Status: Completed infusion ad5 Intake: 10/18 20:37 IV: 500ml; Total: 500ml. ad5 20:45 IV: 10ml; Total: 510ml. ad5 10/19 01:29 IV: 1000ml; Total: 1510ml. ad5 Outcome: 10/18 22:05 Decision to Hospitalize by Provider. tw4 10/19 00:42 Condition: stable ea Instructed on the need for admit. 01:33 Admitted to Med/surg accompanied by nurse, via stretcher, Report called to receiving ad5 RN on floor, questions/concerns addressed 01:41 Patient left the ED. ea Signatures: Dispatcher [employer] Lidia Catalan, RN Drake Brown MD MD cha Antunez, Elena, RN RN ea Wadley, Terrence, MD MD tw4 Pepito Moulton ad5 Corrections: (The following items were deleted from the chart) 10/18 21:21 21:20 Reassessment: Patient appears in no apparent distress at this time. No changes ad5 from previously documented assessment. Patient and/or family updated on plan of care and expected duration. Pain level reassessed. Patient is alert, oriented x 3, equal unlabored respirations, skin warm/dry/pink. Patient denies pain at this time. ad5
[2020-10-18 22:25] LABS: Urine Blood 2+ (Negative); Urine Glucose Negative (Negative); Urine Protein Trace (Negative); Urine Specific Gravity 1.025 (1.005-1.030)
--- NOTE | 2020-10-19 01:34 | P.HP ---
Certification for Inpatient Patient admitted to: Inpatient With expected LOS: >2 Midnights Patient will require the following post-hospital care: Fdc Practitioner: I am a practitioner with admitting privileges, knowledge of patient current condition, hospital course, and medical plan of care. Services: Services provided to patient in accordance with Admission requirements found in Title 42 Section 412.3 of the Code of Federal Regulations Patient History Date of Service: 10/19/20 Primary Care Provider: Randa Reason for admission: UTI, FTT History of Present Illness: Ms. Gracia is an 85 yo F with Alzheimer's dementia, HTN, and CAD brought in today by her daughter for AMS and weakness. She reports her mother has been very lethargic, not eating or talking like normal. She said she noticed a change in her baseline mental status after she received benzodiazepines, which she then asked the [facility] to stop. She says her mother has been losing weight. Denies all other symptoms. Plt 106. Trop 0.05. BNP 4228. Alb 2.6. Urine dipstick 1+ ketone, 2++ blood, nitrite, 3+ leukocytes, trace protein. CXR shows lungs are grossly clear, heart is enlarged with tortuous and ectatic thoracic aorta similar to prior study. Allergies No Known Allergies Allergy (Unverified 01/28/20 23:53) Home Medications: Amlodipine [Norvasc*] 5 mg PO DAILY 01/29/20 Diphenoxylate HCl/Atropine [Diphenoxylate-Atrop 2.5-0.025] 2 tab PO DAILY 01/29/20 Divalproex Sodium [Depakote] 500 mg PO DAILY 01/29/20 Donepezil HCl 10 mg PO DAILY 01/29/20 Memantine HCl [Namenda*] 10 mg PO BID 01/29/20 Quetiapine [Seroquel*] 25 mg PO DAILY 01/29/20 Cefdinir [Cefdinir*] 300 mg PO BID #6 cap 01/30/20 Ensure Enlive 237 ml PO BID can 01/30/20 - Past Medical/Surgical History Diabetic: No -: Hypertension -: Dementia -: CAD -: CABG -: Cardiac stent -: aortic valve replacement Psychosocial/ Personal History: Patient lives at [facility] x 2 years - Social History Smoking Status: Former smoker Alcohol use: No CD- Drugs: No Caffeine use: No Place of Residence: [facility] Review of Systems General: Unremarkable Eyes: Unremarkable ENT: Unremarkable Respiratory: Unremarkable Cardiovascular: Unremarkable Gastrointestinal: Unremarkable Genitourinary: Unremarkable Musculoskeletal: Unremarkable Integumentary: Unremarkable Neurological: Confusion, As per HPI Lymphatics: Unremarkable Physical Examination - Physical Exam General: In no apparent distress, Cachectic, Demented HEENT: Atraumatic, Normocephalic, PERRLA, Mucous membr. moist/pink, EOMI, Sclerae nonicteric Neck: 2+ carotid pulse no bruit, JVD not distended, No Thyromegaly, No LAD Respiratory: Clear to auscultation bilaterally, Normal air movement Cardiovascular: No edema, Normal pulses, Regular rate/rhythm, Normal S1 S2, No gallops, No rubs, No murmurs Capillary refill: <2 Seconds Gastrointestinal: Normal bowel sounds, Soft and benign, Non-distended, No ascites, No tenderness, No masses, No rebound, No guarding Musculoskeletal: No clubbing, No swelling, No contractures, No erythema, No tenderness, No warmth Integumentary: No rashes, No breakdown, No significant lesion, No tenderness/sw elling, No erythema, No warmth, No cyanosis Neurological: Normal tone, Sensation intact, Cranial nerves 3-12 intact, Dementia Lymphatics: No axilla or inguinal lymphadenopathy - Studies Laboratory Data (last 24 hrs) 10/18/20 20:32: WBC 8.80, Hgb 11.9 L, Hct 35.4 L, Plt Count 106 L 10/18/20 20:32: Sodium 146 H, Potassium 3.9, BUN 15, Creatinine 0.73, Glucose 87, Magnesium 2.0, Total Bilirubin 0.8, AST 10 L, ALT 7 L, Alkaline Phosphatase 64, Lipase 26 L Assessment and Plan - Problems (Diagnosis) (1) Alzheimer disease Current Visit: Yes Status: Chronic (2) HTN (hypertension) Current Visit: Yes Status: Chronic Qualifiers: Hypertension type: essential hypertension Qualified Code(s): I10 - Essential (primary) hypertension (3) CAD (coronary artery disease) Current Visit: Yes Status: Chronic Qualifiers: Coronary Disease-Associated Artery/Lesion type: bypass graft [place] vs. transplanted heart: [place] heart Associated angina: without angina Qualified Code(s): I25.810 - Atherosclerosis of coronary artery bypass graft(s) without angina pectoris (4) UTI (urinary tract infection) Current Visit: Yes Status: Acute Qualifiers: Urinary tract infection type: site unspecified Hematuria presence: with hematuria Qualified Code(s): N39.0 - Urinary tract infection, site not specified; R31.9 - Hematuria, unspecified (5) FTT (failure to thrive) in adult Current Visit: Yes Status: Acute - Plan 1g ceftriaxone IV daily for UTI speech pathologist consulted, dietitian consulted, PT/OT consulted social work consulted bedside swallow pending continue with IV maintenance fluids trend troponins, repeat EKG in the AM, hydralazine IV for PRN control of BP SCDs for DVT ppx Discharge Plan: [facility] Plan to discharge in: 72 Hours - Advance Directives Does patient have a Living Will: No Does patient have a Durable POA for Healthcare: No - Code Status/Comfort Care Code Status Assessed: Yes (full code) Critical Care: No Time Spent Managing Pts Care (In Minutes): 70
[2020-10-19 01:37] LABS: Barbiturates NEGATIVE (NEGATIVE); Benzodiazepines NEGATIVE (NEGATIVE); Cocaine NEGATIVE (NEGATIVE); METHAMPHETAM NEGATIVE (NEGATIVE); Methadone NEGATIVE (NEGATIVE); Opiates NEGATIVE (NEGATIVE); Phencyclidine NEGATIVE (NEGATIVE); THC Cannibis NEGATIVE (NEGATIVE)
[2020-10-19] MEDS ORDERED: ONDANSETRON 4 MG/2 ML VIAL IV PRN (01:38)
[2020-10-19 02:17] VITALS: BMI 16.9
[2020-10-19 02:41] LABS: Protime INR 1.04
[2020-10-19] MEDS: D5 0.45 NS 1,000 ML IV SCH ×2 (02:45→15:53)
[2020-10-19] MEDS: HYDRALAZINE HCL 20 MG/ML VIAL IV PRN (03:09)
[2020-10-19 06:26] LABS: Absolute Lymphocytes (CBC) 1.5 K/uL (0.7-4.9); Basophils % 0.6 % (0-1.3); Hematocrit 40.7 % (36.0-45.0); Lymphocytes % 15.3 % (15.3-44.8); MPV 10.1 fL (7.6-11.3); RBC Red Blood Cell Count 4.24 M/uL (3.86-4.86)
[2020-10-19 06:46] LABS: Albumin 2.9 g/dL (3.4-5.0); Bilirubin Total 0.9 mg/dL (0.2-1.0); Magnesium 1.9 mg/dL (1.8-2.4); Phosphorus 2.4 mg/dL (2.5-4.9); Potassium 3.2 mmol/L (3.5-5.1); Protein, Total 7.2 g/dL (6.4-8.2)
[2020-10-19 06:55] LABS: Thyroid Stimulating Hormone 6.67 uIU/mL (0.360-3.740)
[2020-10-19] MEDS ORDERED: KCL 20 MEQ/100 mL IVPB 20 MEQ/100 ML BAG IV SCH (08:00)
[2020-10-19] MEDS ORDERED: POTASSIUM PHOS IN 0.9 % NACL 15 MMOL/250 ML BAG IV ONE (10:00)
--- NOTE | 2020-10-19 12:36 | P.PN ---
Subjective Date of Service: 10/19/20 Primary Care Provider: Randa Chief Complaint: UTI, FTT Patient drowsy but interactive. She responds to questions appropriately. No fever. No agitation. Physical Examination - Vital Signs Temperature: 97.6 F Blood Pressure: 168/80 Pulse: 80 Respirations: 18 Pulse Ox (%): 99 - Physical Exam General: In no apparent distress, Other (Drowsy) HEENT: Other (Dry oral mucosa) Neck: Supple, JVD not distended Respiratory: Clear to auscultation bilaterally, Normal air movement Cardiovascular: No edema, Regular rate/rhythm, Normal S1 S2 Gastrointestinal: Soft and benign, Non-distended, No tenderness Musculoskeletal: No swelling, No tenderness Integumentary: No rashes, No erythema Neurological: Dementia - Studies Laboratory Data (last 24 hrs) 10/18/20 20:32: WBC 8.80, Hgb 11.9 L, Hct 35.4 L, Plt Count 106 L 10/18/20 20:32: Sodium 146 H, Potassium 3.9, BUN 15, Creatinine 0.73, Glucose 87, Magnesium 2.0, Total Bilirubin 0.8, AST 10 L, ALT 7 L, Alkaline Phosphatase 64, Lipase 26 L Assessment And Plan - Current Problems (Diagnosis) (1) UTI (urinary tract infection) Current Visit: Yes Status: Acute Qualifiers: Urinary tract infection type: site unspecified Hematuria presence: with hematuria Qualified Code(s): N39.0 - Urinary tract infection, site not specified; R31.9 - Hematuria, unspecified (2) FTT (failure to thrive) in adult Current Visit: Yes Status: Acute (3) Alzheimer disease Current Visit: Yes Status: Chronic (4) CAD (coronary artery disease) Current Visit: Yes Status: Chronic Qualifiers: Coronary Disease-Associated Artery/Lesion type: bypass graft [place] vs. transplanted heart: [place] heart Associated angina: without angina Qualified Code(s): I25.810 - Atherosclerosis of coronary artery bypass graft(s) without angina pectoris (5) HTN (hypertension) Current Visit: Yes Status: Chronic Qualifiers: Hypertension type: essential hypertension Qualified Code(s): I10 - Essential (primary) hypertension - Plan Had a prolonged conversation with the daughter and the medical power of energy attorney. Will continue IV hydration. Continue antibiotics as we wait for urine culture to result. Speech therapy for formal speech evaluation tomorrow. Bedside swallow evaluation once she is more awake. Will have PT to assess her functional capacity for discharge planning. Patient has advanced dementia and appropriate for hospice. Daughter is open to hospice but was concerned how the previous hospice agency treated the patient. She was concerned they kept given her neuroleptics, Ativan and morphine which made her drowsy, unresponsive and not able to eat. She is looking forward to some come forth but not to the level patient will be constantly sedated and not able to do anything. Troponin is mildly elevated but trended flat. ACS not likely. Monitor and replete electrolytes. Avoid psychotropic medications for much as possible.
[2020-10-19] MEDS: CEFTRIAXONE/SWI 1gm 1 GM/10 ML SYR IV SCH (19:52)
[2020-10-19] MEDS ORDERED: CEFTRIAXONE 1 GM/NS 50 ML 1 GM/50 ML BAG IV SCH (20:00)
[2020-10-20] MEDS: D5 0.45 NS 1,000 ML IV SCH ×2 (04:04→18:22)
[2020-10-20] MEDS: HYDRALAZINE HCL 20 MG/ML VIAL IV PRN (04:46)
[2020-10-20 06:03] LABS: Absolute Lymphocytes (CBC) 1.4 K/uL (0.7-4.9); Basophils % 0.3 % (0-1.3); Hematocrit 37.1 % (36.0-45.0); Lymphocytes % 13.2 % (15.3-44.8); MPV 10.7 fL (7.6-11.3); RBC Red Blood Cell Count 3.88 M/uL (3.86-4.86)
[2020-10-20 06:14] LABS: ALT/SGPT 8 U/L (12-78); AST/SGOT 14 U/L (15-37); Albumin 2.8 g/dL (3.4-5.0); Alkaline Phosphatase 67 U/L (45-117); BUN Blood Urea Nitrogen 7 mg/dL (7-18); Bicarbonate 25 mmol/L (21-32); Bilirubin Total 0.8 mg/dL (0.2-1.0); Glucose Level 119 mg/dL (74-106); Magnesium 1.6 mg/dL (1.8-2.4); Phosphorus 2.8 mg/dL (2.5-4.9); Potassium 3.4 mmol/L (3.5-5.1); Protein, Total 6.8 g/dL (6.4-8.2); Sodium Level 143 mmol/L (136-145)
[2020-10-20] MEDS ORDERED: MAGNESIUM SULFATE 1 gm IVPB 1 GM/100 ML BAG IV ONE (08:00)
[2020-10-20] MEDS: KCL 20 MEQ/100 mL IVPB 20 MEQ/100 ML BAG IV SCH (08:07)
--- NOTE | 2020-10-20 10:44 | RAD REPORT ---
EXAM DESCRIPTION: CT - Head Brain Wo Cont - 10/18/2020 11:45 pm CLINICAL HISTORY: DECLINING STATE. TECHNIQUE: Axial, coronal, and sagittal images through the brain were performed in the absence of in travenous contrast. This exam was performed according to our departmental dose-optimization program w hich includes use of Automated Exposure Control, adjustment of the mA and/or kV according to patient size and/or use of iterative reconstruction technique. COMPARISON: CT head from May 04, 2020. FINDINGS: There is diffuse age-appropriate atrophy throughout the brain parenchyma, similar to prior . Moderate periventricular white matter changes are present, and there is moderate ex vacuo dilatatio n of the ventricular system. There is no intra-axial or extra-axial bleed. There is no mass or mass e ffect. The visualized paranasal sinuses and mastoid air cells are patent. No fracture is identified. IMPRESSION: 1. No acute intracranial abnormality identified. 2. Similar appearance of chronic age-related and microvascular ischemic changes. Electronically signed by: Niki Reyes MD 10/18/2020 11:49 PM CDT Due to temporary technical issues with the PACS/Fluency reporting system, reports are being signed by the in house radiologist without review as a courtesy to ensure prompt reporting. The interpreting r adiologist is fully responsible for the content of the report.
[2020-10-20] MEDS: AMLODIPINE 5 MG TAB PO SCH (11:38)
[2020-10-20] MEDS: MEMANTINE HCL 10 MG TABLET PO SCH ×2 (11:39→21:51)
--- NOTE | 2020-10-20 18:20 | P.PN ---
Subjective Date of Service: 10/20/20 Primary Care Provider: Randa Chief Complaint: UTI, FTT Patient is more awake and interactive today. Was seen by speech and physical therapy for evaluation No agitation. Physical Examination - Vital Signs Temperature: 98.7 F Blood Pressure: 177/90 Pulse: 75 Respirations: 16 Pulse Ox (%): 96 - Physical Exam General: In no apparent distress, Other (Awake) Neck: JVD not distended Respiratory: Clear to auscultation bilaterally, Normal air movement Cardiovascular: No edema, Regular rate/rhythm, Normal S1 S2 Gastrointestinal: Normal bowel sounds, Soft and benign, Non-distended Musculoskeletal: No swelling, No tenderness Integumentary: No rashes Neurological: Other (She moves all extremities.) Assessment And Plan - Current Problems (Diagnosis) (1) UTI (urinary tract infection) Current Visit: Yes Status: Acute Qualifiers: Urinary tract infection type: site unspecified Hematuria presence: with hematuria Qualified Code(s): N39.0 - Urinary tract infection, site not specified; R31.9 - Hematuria, unspecified (2) FTT (failure to thrive) in adult Current Visit: Yes Status: Acute (3) Alzheimer disease Current Visit: Yes Status: Chronic (4) CAD (coronary artery disease) Current Visit: Yes Status: Chronic Qualifiers: Coronary Disease-Associated Artery/Lesion type: bypass graft [place] vs. transplanted heart: [place] heart Associated angina: without angina Qualified Code(s): I25.810 - Atherosclerosis of coronary artery bypass graft(s) without angina pectoris (5) HTN (hypertension) Current Visit: Yes Status: Chronic Qualifiers: Hypertension type: essential hypertension Qualified Code(s): I10 - Essential (primary) hypertension - Plan Will continue IV hydration. Pureed diet and honey thickened liquids per speech recommendation. Patient was not able to sit during physical therapy. She is very debilitated, incontinent for both stool and urine, able to communicate some words but does not follow instructions. She has severe dementia and meets hospice criteria. Physical therapy may likely not be beneficial at this time. I spoke to the daughter and recommended hospice. The daughter is looking at home with hospice with 24 x 7 care. Urine culture is growing Gram negative rods. Continue antibiotics as we wait for organism identification and sensitivity. Feed as tolerated. Troponin is mildly elevated but trended flat. ACS not likely. Monitor and replete electrolytes. Avoid psychotropic medications for much as possible.
[2020-10-20] MEDS: DONEPEZIL HCL 5 MG TAB PO SCH (21:00)
[2020-10-20] MEDS: CEFTRIAXONE/SWI 1gm 1 GM/10 ML SYR IV SCH (21:51)
[2020-10-20] MEDS: ENSURE ENLIVE 237 ML CAN PO SCH (21:51)
[2020-10-20] MEDS: JUVEN PACKET PO SCH (21:52)
[2020-10-21] MEDS: D5 0.45 NS 1,000 ML IV SCH (06:26)
[2020-10-21 06:47] LABS: Potassium 3.5 mmol/L (3.5-5.1)
[2020-10-21] MEDS: MEMANTINE HCL 10 MG TABLET PO SCH ×2 (08:31→20:22)
[2020-10-21] MEDS: AMLODIPINE 5 MG TAB PO SCH (08:31)
[2020-10-21] MEDS: ENSURE ENLIVE 237 ML CAN PO SCH ×2 (08:32→20:23)
[2020-10-21] MEDS: JUVEN PACKET PO SCH ×2 (08:33→20:23)
[2020-10-21] MEDS ORDERED: POTASSIUM 25 MEQ EFFERV TAB PO ONE (09:00)
[2020-10-21] MEDS: KCL 20 MEQ/100 mL IVPB 20 MEQ/100 ML BAG IV SCH (09:00)
--- NOTE | 2020-10-21 15:15 | P.PN ---
Subjective Date of Service: 10/21/20 Primary Care Provider: Randa Chief Complaint: UTI, FTT Subjective: No new changes (no acute events overnight. patient alert, sleepy this morning, without complaints. +confusion /dementia) Review of Systems 10-point ROS is otherwise unremarkable Physical Examination - Vital Signs Temperature: 97.6 F Blood Pressure: 163/76 Pulse: 88 Respirations: 18 Pulse Ox (%): 95 - Studies Microbiology Data (last 24 hrs): 10/18/20 22:20 Catheterized Urine [place] Count - Final BETWEEN 10,000 & 100,000 CFU/ML 10/18/20 22:20 Catheterized Urine - Final Klebsiella Pneumoniae Gram Neg [place] Assessment & Plan Physician Review Additional Text: Physical Exam General: AAOx1, awake Neck: JVD not distended Respiratory: Clear to auscultation bilaterally, Normal air movement Cardiovascular: Regular rate/rhythm, Normal S1 S2 Gastrointestinal: soft, nontender, non-distended Musculoskeletal: No swelling, No tenderness Integumentary: No rashes Problem List acute UTI - cystitis Failure to thrive moderate dysphagia Alzheimer disease CAD s/p CABG HTN -decrease IVF hydration -speech therapy evaluated pt, recommended pureed diet and honey thickened liquids -Feed as tolerated. -pt very weak /max A with PT -very debilitated, and has h/o moderate-severe dementia -daughter unhappy with care patient received while on hospice, states they "put her in a coma to get a way with doing the bare minimum" -daughter unsure of how to proceed forward, considering home hospice -urine culture growing GNR, prelim result is klebsiella -Troponin is mildly elevated but trended flat. ACS not likely. -Monitor and replete electrolytes. -Avoid psychotropic medications as much as possible. VTE: lovenox Code: full Dispo: anticipate dc in ~24-48hrs, discussed for 25 minute with daughter regarding advanced directives and current UTI /ongoing medical illness/prognosis daughter considering home hospice, she will come in today to have further discussion regarding these issues. Time Spent Managing Pts Care (In Minutes): 35
[2020-10-21] MEDS: ENOXAPARIN 40 MG/0.4 ML SQ SCH (16:03)
[2020-10-21] MEDS: DONEPEZIL HCL 5 MG TAB PO SCH (20:22)
[2020-10-21] MEDS: CEFTRIAXONE/SWI 1gm 1 GM/10 ML SYR IV SCH (20:22)
[2020-10-22 05:54] LABS: Absolute Lymphocytes (CBC) 1.7 K/uL (0.7-4.9); Basophils % 0.7 % (0-1.3); Hematocrit 32.2 % (36.0-45.0); Lymphocytes % 18.9 % (15.3-44.8); MPV 10.8 fL (7.6-11.3); RBC Red Blood Cell Count 3.36 M/uL (3.86-4.86)
[2020-10-22 06:40] LABS: Potassium 3.9 mmol/L (3.5-5.1)
[2020-10-22] MEDS: AMLODIPINE 5 MG TAB PO SCH (08:32)
[2020-10-22] MEDS: MEMANTINE HCL 10 MG TABLET PO SCH ×2 (08:32→20:03)
[2020-10-22] MEDS: ENSURE ENLIVE 237 ML CAN PO SCH ×2 (08:32→20:04)
[2020-10-22] MEDS: JUVEN PACKET PO SCH ×2 (08:32→20:04)
[2020-10-22] MEDS ORDERED: POTASSIUM 25 MEQ EFFERV TAB PO ONE (12:47)
--- NOTE | 2020-10-22 14:29 | P.PN ---
Subjective Date of Service: 10/22/20 Primary Care Provider: Randa Chief Complaint: UTI, FTT Subjective: Improving (pt still sleepy/weak, wakes up to verbal stimuli, able to eat meals with encouragement and assistance with feeding. without complaints. oriented to self only) Review of Systems 10-point ROS is otherwise unremarkable Physical Examination - Vital Signs Temperature: 97.8 F Blood Pressure: 119/74 Pulse: 72 Respirations: 18 Pulse Ox (%): 96 Assessment & Plan Physician Review Additional Text: Physical Exam General: AAOx1, awake Neck: JVD not distended Respiratory: Clear to auscultation bilaterally, Normal air movement Cardiovascular: Regular rate/rhythm, Normal S1 S2 Gastrointestinal: soft, nontender, non-distended Musculoskeletal: No swelling, No tenderness Integumentary: No rashes Neuro: generalized weakness, no focal findings Problem List acute UTI - cystitis Failure to thrive moderate dysphagia Alzheimer disease CAD s/p CABG HTN -IVF discontinued, patient tolerating PO with encouragement/feeding assistance -speech therapy evaluated pt, recommended pureed diet and honey thickened liquids -Feed as tolerated. -pt very weak /max A with PT, very debilitated, and has h/o moderate-severe dementia -urine culture growing klebsiella -Troponin is mildly elevated but trended flat. ACS not likely. -Monitor and replete electrolytes. -Avoid psychotropic medications as much as possible. -daughter reports patient is more alert / interactive than she has been for last 2 weeks or so VTE: lovenox Code: full Dispo: anticipate dc in ~24-48hrs, discussed again at length for 25 minutes with daughter regarding advanced directives and current UTI /ongoing medical illness/prognosis. daughter states she would prefer back to [facility] with hospice temporarily with goal for home with hospice once she has everything set up at home. States she recently moved into her house and has movign boxes all over. SW/CM updated/consulted Time Spent Managing Pts Care (In Minutes): 35
[2020-10-22] MEDS: ENOXAPARIN 40 MG/0.4 ML SQ SCH (16:37)
[2020-10-22] MEDS: CEFTRIAXONE/SWI 1gm 1 GM/10 ML SYR IV SCH (20:05)
[2020-10-22] MEDS: DONEPEZIL HCL 5 MG TAB PO SCH (20:05)
[2020-10-23 04:27] LABS: Hematocrit 32.1 % (36.0-45.0); MPV 11.3 fL (7.6-11.3)
[2020-10-23 04:48] LABS: Albumin 2.2 g/dL (3.4-5.0); Bilirubin Total 0.4 mg/dL (0.2-1.0); Protein, Total 6.1 g/dL (6.4-8.2)
[2020-10-23 04:50] LABS: Magnesium 2.1 mg/dL (1.8-2.4); Potassium 4.2 mmol/L (3.5-5.1)
[2020-10-23] MEDS: MEMANTINE HCL 10 MG TABLET PO SCH ×2 (09:08→21:20)
[2020-10-23] MEDS: ENSURE ENLIVE 237 ML CAN PO SCH ×2 (09:08→21:40)
[2020-10-23] MEDS: JUVEN PACKET PO SCH ×2 (09:08→21:39)
[2020-10-23] MEDS: AMLODIPINE 5 MG TAB PO SCH (09:08)
--- NOTE | 2020-10-23 16:02 | P.PN ---
Subjective Date of Service: 10/23/20 Primary Care Provider: Randa Chief Complaint: UTI, FTT Subjective: No new changes (patient awake/alert, oriented to self only, without complaints. no acute events overnight) Review of Systems 10-point ROS is otherwise unremarkable Physical Examination - Vital Signs Temperature: 96.8 F Blood Pressure: 128/95 Pulse: 66 Respirations: 16 Pulse Ox (%): 95 Assessment & Plan Physician Review Additional Text: Physical Exam General: AAOx1, awake Neck: JVD not distended Respiratory: Clear to auscultation bilaterally, Normal air movement Cardiovascular: Regular rate/rhythm, Normal S1 S2 Gastrointestinal: soft, nontender, non-distended Musculoskeletal: No swelling, No tenderness Neuro: generalized weakness, no focal findings Problem List acute UTI - cystitis Failure to thrive, severe malnutrition moderate dysphagia Alzheimer disease CAD s/p CABG HTN -IVF discontinued, patient tolerating PO with encouragement/feeding assistance -speech therapy evaluated pt, recommended pureed diet and honey thickened liquids -Feed as tolerated. -pt very weak /max A with PT, very debilitated, and has h/o moderate-severe dementia -urine culture growing klebsiella -Troponin is mildly elevated but trended flat. ACS not likely. -Monitor and replete electrolytes. -Avoid psychotropic medications as much as possible. -daughter reports patient is more alert / interactive than she has been for last 2 weeks or so VTE: lovenox Code: full Dispo: anticipate dc in ~24-48hrs, continue with long discussions for 25-30 minutes with daughter regarding advanced directives, and disposition. Patient denied to go back to [facility]. Daughter would like patient to go to SNF at [facility] if possible. Considering home with hospice in the future a s well SW/CM updated/consulted Time Spent Managing Pts Care (In Minutes): 35
[2020-10-23] MEDS: ENOXAPARIN 40 MG/0.4 ML SQ SCH (16:04)
[2020-10-23] MEDS: CEFTRIAXONE/SWI 1gm 1 GM/10 ML SYR IV SCH (21:20)
[2020-10-23] MEDS: DONEPEZIL HCL 5 MG TAB PO SCH (21:39)
[2020-10-24] MEDS: HYDRALAZINE HCL 20 MG/ML VIAL IV PRN (05:23)
[2020-10-24] MEDS: MEMANTINE HCL 10 MG TABLET PO SCH ×2 (09:22→20:19)
[2020-10-24] MEDS: JUVEN PACKET PO SCH ×2 (09:23→20:20)
[2020-10-24] MEDS: ENSURE ENLIVE 237 ML CAN PO SCH ×2 (09:23→20:20)
[2020-10-24] MEDS: AMLODIPINE 5 MG TAB PO SCH (09:23)
--- NOTE | 2020-10-24 16:10 | P.DS ---
Admission Date: 10/19/20 Discharge Date: 10/25/20 Primary Care Provider: Randa Disposition: HOSPICE-MEDICAL FACILITY Discharge Condition: FAIR Reason for Admission: UTI, FTT Procedures: CXR (10/18/20): The lungs are grossly clear. The heart is enlarged with a tortuous and ectatic thoracic aorta, similar to prior study. No displaced fractures.Sternotomy wires present. CT Head (10/21): 1. No acute intracranial abnormality identified. 2. Similar appearance of chronic age-related and microvascular ischemic changes. Problem List Acute UTI - cystitis Failure to thrive, severe malnutrition Moderate dysphagia Alzheimer disease with severe dementia CAD s/p CABG HTN Brief History of Present Illness: Ms. Gracia is an 85 yo F with Alzheimer's dementia, HTN, and CAD brought in today by her daughter for AMS and weakness. She reports her mother has been very lethargic, not eating or talking like normal. She said she noticed a change in her baseline mental status after she received benzodiazepines, which she then asked the assisted to stop. She says her mother has been losing weight. Denies all other symptoms. Plt 106. Trop 0.05. BNP 4228. Alb 2.6. Urine dipstick 1+ ketone, 2++ blood, nitrite, 3+ leukocytes, trace protein. CXR shows lungs are grossly clear, heart is enlarged with tortuous and ectatic thoracic aorta similar to prior study. Hospital Course: She was treated for UTI with IV Antibiotics and received 7 day course. She had improvement and was more alert, but remained confused / demented. She had moderate dysphagia and was evaluated by speech therapy. She was very weak due to her malnutrition / debility. After speaking at length with the patient's daughter regarding advanced directives and advanced care planning, it was decided that home or a personal fpc with hospice would be most in line with what the patient would want. She was discharged to personal fpc with hospice. Vital Signs/Physical Exam: Physical Exam General: AAOx1, awake, slow to speak Neck: JVD not distended Respiratory: Clear to auscultation bilaterally, Normal air movement Cardiovascular: Regular rate/rhythm, Normal S1 S2 Gastrointestinal: soft, nontender, non-distended Musculoskeletal: No swelling, No tenderness Neuro: generalized weakness Temp Pulse Resp BP Pulse Ox 96.4 F L 69 16 153/76 H 98 10/24/20 12:00 10/24/20 12:00 10/24/20 12:00 10/24/20 12:00 10/24/20 12:00 Laboratory Data at Discharge: WBC 9.10 K/uL (4.3-10.9) 10/23/20 03:10 Hgb 10.5 g/dL (12.0-15.0) L 10/23/20 03:10 Hct 32.1 % (36.0-45.0) L 10/23/20 03:10 Plt Count 155 K/uL (152-406) 10/23/20 03:10 PT 12.0 SECONDS (9.5-12.5) 10/19/20 02:13 INR 1.04 10/19/20 02:13 Sodium 144 mmol/L (136-145) 10/23/20 03:10 Potassium 4.2 mmol/L (3.5-5.1) 10/23/20 03:10 BUN 27 mg/dL (7-18) H 10/23/20 03:10 Creatinine 0.72 mg/dL (0.55-1.3) 10/23/20 03:10 Glucose 84 mg/dL (74-106) 10/23/20 03:10 Phosphorus 2.8 mg/dL (2.5-4.9) 10/20/20 05:09 Magnesium 2.1 mg/dL (1.8-2.4) 10/23/20 03:10 Total Bilirubin 0.4 mg/dL (0.2-1.0) 10/23/20 03:10 AST 13 U/L (15-37) L 10/23/20 03:10 ALT 9 U/L (12-78) L 10/23/20 03:10 Alkaline Phosphatase 64 U/L (45-117) 10/23/20 03:10 Troponin I 0.06 ng/mL (0.0-0.045) H 10/19/20 06:01 Triglycerides 203 mg/dL (<150) H 10/19/20 06:01 Cholesterol 243 mg/dL (<200) H 10/19/20 06:01 HDL Cholesterol 43 mg/dL (40-60) 10/19/20 06:01 Cholesterol/HDL Ratio 5.65 10/19/20 06:01 Lipase 26 U/L (73-393) L 10/18/20 20:32 Home Medications: Acetaminophen 650 mg RC Q4HP PRN 10/19/20 Amlodipine [Norvasc*] 5 mg PO DAILY 10/19/20 Bisacodyl [Gentle Laxative] 10 mg RC DAILY PRN 10/19/20 Diphenoxylate HCl/Atropine [Diphenoxylate-Atrop 2.5-0.025] 1 each PO Q8HP PRN 10/19/20 Divalproex ER [Depakote *ER] 500 mg PO DAILY 10/19/20 Donepezil HCl 10 mg PO BEDTIME 10/19/20 Memantine HCl [Namenda*] 10 mg PO BID 10/19/20 Promethazine HCl 25 mg PO Q4HP PRN 10/19/20 Ensure Enlive 237 ml PO BID can 10/24/20 Physician Discharge Instructions: PROBLEM: UTI GOAL: Clear understanding of disease process INSTRUCTIONS: Diet: Regular Activity: As tolerated You were found to have a urinary tract infection. You completed 7 day course of IV antibiotics and do not require any further. You are discharged to personal fpc with hospice Diet: Regular (Pureed) Activity: Ad albaro Followup: Renate Tolentino MD [Primary Care Provider] - Time spent managing pt's care (in minutes): 35
[2020-10-24] MEDS: ENOXAPARIN 40 MG/0.4 ML SQ SCH (16:16)
[2020-10-24] MEDS ORDERED: CEFTRIAXONE/SWI 1gm 1 GM/10 ML SYR IVP SCH (17:00)
--- NOTE | 2020-10-24 19:02 | P.PN ---
Subjective Date of Service: 10/24/20 Primary Care Provider: Randa Chief Complaint: UTI, FTT Subjective: No new changes (doing well, awake, oriented x1) Review of Systems 10-point ROS is otherwise unremarkable Physical Examination - Vital Signs Temperature: 96.8 F Blood Pressure: 140/86 Pulse: 77 Respirations: 16 Pulse Ox (%): 98 Assessment & Plan Physician Review Additional Text: Physical Exam General: AAOx1, awake Neck: JVD not distended Respiratory: Clear to auscultation bilaterally, Normal air movement Cardiovascular: Regular rate/rhythm, Normal S1 S2 Gastrointestinal: soft, nontender, non-distended Musculoskeletal: No swelling, No tenderness Neuro: generalized weakness, no focal findings Problem List acute UTI - cystitis Failure to thrive, severe malnutrition moderate dysphagia Alzheimer disease CAD s/p CABG HTN -patient tolerating PO with encouragement/feeding assistance -speech therapy evaluated pt, recommended pureed diet and honey thickened liqui ds -Feed as tolerated. -pt very weak /max A with PT, very debilitated, and has h/o moderate-severe dementia -has had 6 days of IV rocephin -urine culture growing klebsiella -Troponin is mildly elevated but trended flat. ACS not likely. -Monitor and replete electrolytes. -doing better VTE: lovenox Code: full Dispo: anticipate dc in next 24hrs, daughter looking into personal half-way with hospice SW/CM updated/consulted Time Spent Managing Pts Care (In Minutes): 35
[2020-10-24] MEDS: DONEPEZIL HCL 5 MG TAB PO SCH (20:20)
[2020-10-25 08:01] VITALS: BP 156/80; TEMP 97.1
[2020-10-25] MEDS: MEMANTINE HCL 10 MG TABLET PO SCH (08:43)
[2020-10-25] MEDS: AMLODIPINE 5 MG TAB PO SCH (08:43)
[2020-10-25] MEDS: JUVEN PACKET PO SCH (08:43)
[2020-10-25] MEDS: ENSURE ENLIVE 237 ML CAN PO SCH (08:43)
[2020-10-25 09:29] VITALS: O2SAT 99
== END 2020-10-25 11:29 | disposition hospice, home (50) | DRG 689 ==
LOC: ER 18:24 → ERHOLD 10-19 01:15 → 2ND 10-19 01:36
PROVIDERS: ADMIT Internal Medicine; ATTEND Hospitalist
DX: N39.0 Urinary tract infection, site not specified (principal); E43 Unspecified severe protein-calorie malnutrition; Z68.1 Body mass index [BMI] 19.9 or less, adult; I25.810 Atherosclerosis of coronary artery bypass graft(s) without angina pectoris; I10 Essential (primary) hypertension; L89.152 Pressure ulcer of sacral region, stage 2; G30.9 Alzheimer's disease, unspecified; F02.80 Dementia in other diseases classified elsewhere, unspecified severity, without behavioral disturbance, psychotic disturbance, mood disturbance, and anxiety; B96.1 Klebsiella pneumoniae [K. pneumoniae] as the cause of diseases classified elsewhere; R62.7 Adult failure to thrive; R13.10 Dysphagia, unspecified; R31.9 Hematuria, unspecified; Z79.899 Other long term (current) drug therapy; Z88.0 Allergy status to penicillin; Z20.822 Contact with and (suspected) exposure to COVID-19; Z95.1 Presence of aortocoronary bypass graft; Z95.5 Presence of coronary angioplasty implant and graft; Z95.2 Presence of prosthetic heart valve; Z87.891 Personal history of nicotine dependence
CPT/HCPCS: 36415; 70450; 71045; 80048; 80053; 80061; 80076; 80307; 81003; 82947; 83605; 83690; 83735; 83880; 84100; 84132; 84439; 84443; 84484; 85025; 85027; 85610; 87040; 87077; 87086; 87088; 87186; 92610; 93005; 94760; 96361; 96365; 97110; 97161; 97165; 97530; 99285; J0360; J0696; J1650; J3475; J3480; J7030; J7799; U0003